=== PATIENT | female | born 1965 | race Two or more races ===

== ENCOUNTER → 2016-08-10 | Day surgery (SDC) | payer BC ==
--- NOTE | 2016-08-10 14:37 | USB ---
EXAMINATION TYPE: US biopsy breast VAD LT, MG diagnostic mammo LT wo CAD DATE OF EXAM: 08/10/2016 2:00 PM CLINICAL HISTORY: 51-year-old female referred for ultrasound-guided core needle biopsy, R92.8 Abn Mammo. TECHNIQUE: Ultrasound guided core biopsy of 1:00 left breast. COMPARISON: 05/08/2016 FINDINGS: The procedure of ultrasound guided core biopsy was explained to the patient. Benefits, alternatives, and risks were discussed. An informed consent was then obtained. The cyst cluster complex cystic mass at the 1:00 position in zone B/C in the left breast was redemonstrated and appears stable to possibly minimally smaller measuring at 1.3 x 1.2 x 1.2 cm. The patient was placed in supine positioning for imaging and for the procedure. The overlying skin was prepped and draped in usual sterile fashion. Lidocaine buffered with bicarbonate was used as anesthetic into the skin and subcutaneous tissue up to area of concern in the left breast. Under ultrasound guidance, a 13-gauge vacuum-assisted mammotome Elite biopsy gun device was used to obtain 8 core samples. The lesion promptly decompressed upon placement of the biopsy needle. Following this, a ribbon clip was left in the lesion. The patient tolerated the procedure well without any immediate complication. The patient was kept in the radiology department for short stay after the procedure and then discharged home in stable condition. Post procedure mammogram shows ribbon clip in the upper outer quadrant at a middle depth. IMPRESSION: 1. Successful, uncomplicated ultrasound guided core biopsy of the palpable 1:00 left breast lesion, complex cystic mass versus cyst cluster; pathology results to follow. RECOMMENDATION: 1. Follow-up pathology for the left breast 2. Follow-up right breast ultrasound in 3 months (as the patient presented late for the breast biopsy) (targeted to the 7:00 position). 3. Follow-up left breast ultrasound in 3 months for other small lesions seen on the 05/08/2016 exam. Pathology Results: Benign BREAST, LEFT, CORE BIOPSY: FIBROCYSTIC CHANGES INCLUDING FOCAL SCAR/FAT NECROSIS , FIBROSIS, CYSTS, ADENOSIS, AND RARE MICROCALCIFICATIONS. Recommendation 1. Follow up targed ultrasound of the right breast 7:00 in 3 months (as the patient presented late for biopsy). 2. Followup left breast ultrasound for other small lesions seen on 05/08/[address] [facility]
== END ==
LOC: RADUSWWP 12:35
PROVIDERS: ATTEND Surgery
DX: N64.1 Fat necrosis of breast (principal); L90.5 Scar conditions and fibrosis of skin; R92.8 Other abnormal and inconclusive findings on diagnostic imaging of breast; N60.32 Fibrosclerosis of left breast; N64.89 Other specified disorders of breast; N60.22 Fibroadenosis of left breast; Z88.6 Allergy status to analgesic agent; Z88.1 Allergy status to other antibiotic agents
CPT/HCPCS: 88305; 19083; G0206; A4648

== ENCOUNTER → 2016-11-28 | Outpatient (CLI) | payer BC ==
--- NOTE | 2016-11-29 08:48 | USB ---
Reason for exam: follow-up at short interval from prior study. History: Patient is postmenopausal and has history of other cancer at age 42. Family history of breast cancer in father at age 65, breast cancer in mother at age 30, and breast cancer in 2 maternal aunts at age 60. Benign US biopsy breast VAD LT of the left breast, August 10, 2016. Benign US LT VAD breast biopsy of the left breast, June 17, 2013. Left Breast Aspiration of the left breast, June 17, 2013. Excisional biopsy of the right breast, 2010. Physical Findings: Nurse Summary: nodular, x 4 palpables/clusters (nurse kp). US Breast Limited BILAT Right breast ultrasound includes all four quadrants, the retroareolar region and axilla. Finding demonstrates a 0.4 x 0.4 x 0.4cm round, cystic lesion at 8 o'clock, a 0.6 x 0.6 x 0.3cm oval, cystic lesion at 9 o'clock and a 1.2 x 0.9 x 0.8cm oval, cystic lesion at 9 o'clock. Left breast ultrasound demonstrates a 0.3 x 0.5 x 0.3cm oval, cystic lesion at 1 o'clock. These results were verbally communicated with the patient and result sheet given to the patient on 11/28/16. ASSESSMENT: Probably benign, BI-RAD 3 RECOMMENDATION: Ultrasound of the right breast in 3 months. (3-6 months)
== END | disposition home or self-care (01) ==
LOC: RADUSWWP 14:49
PROVIDERS: ATTEND Surgery
DX: N60.09 Solitary cyst of unspecified breast (principal)

== ENCOUNTER → 2017-03-13 | Outpatient (CLI) | payer BC ==
--- NOTE | 2017-03-13 10:44 | US ---
EXAMINATION TYPE: US transvaginal DATE OF EXAM: 03/13/2017 COMPARISON: CT dated 05/15/2012 CLINICAL HISTORY: R10.2 Pelvic and Perineal pain. LLQ pain TECHNIQUE: Transvaginal (TV) Date of LMP: hysterectomy EXAM MEASUREMENTS: Uterus: Surgically absent cm Endometrial Stripe: Surgically absent cm Right Ovary: 2.2 x 2.4 x 1.5 cm Left Ovary: 2.7 x 2.1 x 1.7 cm 1. Uterus: surgically absent 2. Endometrium: Surgically absent 3. Right Ovary: wnl 4. Left Ovary: 1.6 x 1.2 x 1.4 cm echogenic lesion with low level echoes. 5. Bilateral Adnexa: wnl 6. Posterior cul-de-sac: wnl Grayscale, color Doppler imaging performed of the ovaries. 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 Patient is post hysterectomy.
== END | disposition home or self-care (01) ==
LOC: RADUSWWP 09:06
PROVIDERS: ATTEND Family Medicine
DX: R10.2 Pelvic and perineal pain (principal); Z79.810 Long term (current) use of selective estrogen receptor modulators (SERMs)
CPT/HCPCS: 76830

== ENCOUNTER → 2017-03-13 | Outpatient (CLI) | payer BC ==
--- NOTE | 2017-03-13 10:04 | USB ---
Reason for exam: follow-up at short interval from prior study. History: Patient is postmenopausal and has history of other cancer at age 42. Family history of breast cancer in father at age 65, breast cancer in mother at age 30, and breast cancer in 2 maternal aunts at age 60. Benign US biopsy breast VAD LT of the left breast, August 10, 2016. Benign US LT VAD breast biopsy of the left breast, June 17, 2013. Left Breast Aspiration of the left breast, June 17, 2013. Excisional biopsy of the right breast, 2010. Physical Findings: Nurse did not find any significant physical abnormalities on exam. US Breast RT Right breast ultrasound includes all four quadrants, the retroareolar region and axilla. Finding demonstrates a 0.5 x 0.4 x 0.4cm oval, cystic lesion at 8 o'clock. These results were verbally communicated with the patient and result sheet given to the patient on 03/13/17. ASSESSMENT: Benign, BI-RAD 2 RECOMMENDATION: Routine screening mammogram of both breasts in 1 month. Back on schedule for April 2017.
== END | disposition home or self-care (01) ==
LOC: RADUSWWP 09:04
PROVIDERS: ATTEND Surgery
DX: N60.09 Solitary cyst of unspecified breast (principal)

== ENCOUNTER → 2017-11-05 | Outpatient (CLI) | payer BC ==
--- NOTE | 2017-11-05 10:03 | US ---
EXAMINATION TYPE: US thyroid st tissue head/neck DATE OF EXAM: 11/05/2017 COMPARISON: NONE CLINICAL HISTORY: R13.10 Dysphagia. Intermittent sensation of lump in throat GLAND SIZE: Right Lobe: 4.3 x 1.2 x 1.4 cm Overall Parenchyma: homogenous Left Lobe: 4.4 x 1.5 x 1.3 cm Overall Parenchyma: homogeneous Isthmus Thickness: 0.2 cm NODULES RIGHT: # of nodules measured on right: 0 LEFT: # of nodules measured on left: 1 1. 0.5 X 0.6 x 0.3 cm hypoechoic cystic nodule at the lower pole with well-defined margins. This n odule is wider than tall and shows no intranodular vascularity. Prior size: [employer] ISTHMUS: # of nodules measured in the isthmus: 0 Bilateral neck scanned, no evidence of lymphadenopathy. IMPRESSION: Subcentimeter solitary left thyroid nodule in a nonenlarged thyroid gland. This is below threshold fo r fine-needle aspiration and surveillances recommended. Esophagram could be performed in this patient with dysphagia if clinically indicated.
[2017-11-05 10:08] LABS: HCT 43.6 % (34.0-46.0); MCH 30.9 pg (25.0-35.0); MCHC 34.4 g/dL (31.0-37.0); MCV 89.9 fL (80.0-100.0); Mean Platelet Volume 7.2; Platelet Count 303 k/uL (150-450); RBC 4.85 m/uL (3.80-5.40); RDW 12.4 % (11.5-15.5); WBC 7.5 k/uL (3.8-10.6)
[2017-11-05 10:24] LABS: ALT 23 U/L (9-52); AST 22 U/L (14-36); Albumin 4.3 g/dL (3.5-5.0); Alkaline Phosphatase 69 U/L (38-126); Anion Gap 14 mmol/L; Blood Urea Nitrogen 12 mg/dL (7-17); Calcium 9.6 mg/dL (8.4-10.2); Carbon Dioxide 26 mmol/L (22-30); Chloride 104 mmol/L (98-107); Glucose 118 mg/dL (74-99); Potassium 4.1 mmol/L (3.5-5.1); Sodium 144 mmol/L (137-145); Total Bilirubin 0.7 mg/dL (0.2-1.3); Total Protein 7.3 g/dL (6.3-8.2)
[2017-11-05 10:39] LABS: T4, Free (Free Thyroxine) 1.07 ng/dL (0.78-2.19)
[2017-11-05 17:40] LABS: Vitamin D 25 Hydroxy 18.4 ng/mL (30.0-100.0)
[2017-11-05 17:41] LABS: Thyroid Peroxidase Antibodies 86.4 U/mL (0.0-60.0)
== END | disposition home or self-care (01) ==
LOC: RADUSWWP 09:25
PROVIDERS: ATTEND Internal Medicine Endocrinology, Diabetes & Metabolism
DX: E04.1 Nontoxic single thyroid nodule (principal); R53.83 Other fatigue; E55.9 Vitamin D deficiency, unspecified; Z78.0 Asymptomatic menopausal state
CPT/HCPCS: 36415; 76536; 80053; 82306; 82533; 82607; 83001; 84146; 84439; 84443; 84481; 85027; 86376

== ENCOUNTER 2017-11-15 23:53 | Emergency (ER) | payer BC ==
[2017-11-16 00:04] VITALS: TEMP 97.4
[2017-11-16] MEDS ORDERED: SODIUM CHLORIDE 0.9% 1,000 ML IV STA (00:35)
[2017-11-16] MEDS ORDERED: ONDANSETRON 4 MG/2 ML VIAL IVP STA (00:35)
[2017-11-16] MEDS ORDERED: MORPHINE SULFATE 4 MG/ML SYRINGE IV STA (00:35)
[2017-11-16 01:08] LABS: Basophils % (A) 1 %; Eosinophils # (A) 0.2 k/uL (0-0.7); Eosinophils % (A) 3 %; HCT 42.5 % (34.0-46.0); HGB 14.6 gm/dL (11.4-16.0); Lymphocytes # (A) 2.6 k/uL (1.0-4.8); Lymphocytes % (A) 33 %; MCH 30.3 pg (25.0-35.0); MCHC 34.5 g/dL (31.0-37.0); MCV 87.9 fL (80.0-100.0); Mean Platelet Volume 7.8; Monocytes # (A) 0.5 k/uL (0-1.0); Monocytes % (A) 6 %; Neutrophils # (A) 4.3 k/uL (1.3-7.7); Neutrophils % (A) 55 %; Platelet Count 261 k/uL (150-450); RBC 4.83 m/uL (3.80-5.40); WBC 7.8 k/uL (3.8-10.6)
[2017-11-16 01:21] LABS: ALT 33 U/L (9-52); AST 21 U/L (14-36); Albumin 4.3 g/dL (3.5-5.0); Alkaline Phosphatase 78 U/L (38-126); Amylase 66 U/L (30-110); Anion Gap 12 mmol/L; Blood Urea Nitrogen 14 mg/dL (7-17); Calcium 9.8 mg/dL (8.4-10.2); Carbon Dioxide 25 mmol/L (22-30); Chloride 102 mmol/L (98-107); Glucose 120 mg/dL (74-99); Lipase 127 U/L (23-300); Potassium 3.9 mmol/L (3.5-5.1); Sodium 139 mmol/L (137-145); Total Bilirubin 0.4 mg/dL (0.2-1.3)
[2017-11-16 01:23] LABS: Appearance,Urine Clear (Clear); Bilirubin,Urine Negative (Negative); Blood,Urine Large (Negative); Color,Urine Yellow; Glucose,Urine (UA) Negative (Negative); Hyaline Casts,Urine 2 /lpf (0-2); Ketones,Urine Negative (Negative); Leukocyte Esterase,Urine Negative (Negative); Mucus,Urine Occasional /hpf; Nitrite,Urine Negative (Negative); PH, Urine 6.5 (5.0-8.0); Protein,Urine Trace (Negative); RBC,Urine >182 /hpf (0-5); Specific Gravity,Urine 1.015 (1.001-1.035); Squamous Epithelial Cell,Urine 1 /hpf (0-4); Urobilinogen,Urine <2.0 mg/dL (<2.0); WBC,Urine <1 /hpf (0-5)
--- NOTE | 2017-11-16 01:31 | ED ---
Abdominal Pain HPI - General Chief Complaint: Abdominal Pain Stated Complaint: poss kidney stone Time Seen by Provider: 11/16/17 00:27 Source: patient Mode of arrival: ambulatory Limitations: no limitations - History of Present Illness Initial Comments: 52-year-old female patient presents to the emergency department today for evaluation of left flank and left lower quadrant abdominal pain. Patient states that she has had a dull achy pain to the left lower quadrant over the last 3-4 months. Patient states that she has had a ovarian cyst on the left side in the past 7 leave this to the cause of her pain. Patient states that tonight the pain started radiating into her back and has become quite severe. Patient states the pain is a sharp stabbing pain. States she is nauseated with this. She denies any vomiting, constipation, or diarrhea. She denies any fevers or chills. She denies any hematuria, dysuria, urinary frequency, urinary urgency. States that she has had kidney stone in the past. This does feel similar. Patient denies any recent rash, shortness breath, chest pain, numbness, tingling, dizziness, weakness, headache, visual changes, or any other complaints. - Related Data Previous Rx's Medication Instructions Recorded Hydrocodone/Acetaminophen [[place] 1 tab PO Q6HR PRN #12 tab 11/16/17 5-325] Ibuprofen [Motrin] 600 mg PO Q8HR PRN #30 tab 11/16/17 Ondansetron [Zofran ODT] 4 mg PO Q8HR PRN #10 tab 11/16/17 Tamsulosin HCl [Flomax] 0.4 mg PO DAILY #7 cap 11/16/17 Allergies Allergy/AdvReac Type Severity Reaction Status Date / Time Tetracyclines Allergy Rash/Hives Verified 11/16/17 00:05 aspirin AdvReac Abdominal Verified 11/16/17 00:05 Pain Review of Systems ROS Statement: Those systems with pertinent positive or pertinent negative responses have been documented in the HPI. ROS Other: All systems not noted in ROS Statement are negative. Past Medical History Past Medical History: No Reported History History of Any Multi-Drug Resistant Organisms: None Reported Past Surgical History: Hysterectomy Past Psychological History: No Psychological Hx Reported Smoking Status: Former smoker Past Alcohol Use History: None Reported Past Drug Use History: None Reported General Exam Limitations: no limitations General appearance: alert, in no apparent distress, other (This is a well- developed, well-nourished adult female patient in no acute distress. Vital signs upon presentation are temperature 97.4F, pulse 82, respirations 20, blood pressure 182/88, pulse ox 100% on room air.) Eye exam: Present: normal appearance, PERRL, EOMI. Absent: scleral icterus, conjunctival injection, periorbital swelling ENT exam: Present: normal exam, normal oropharynx, mucous membranes moist Respiratory exam: Present: normal lung sounds bilaterally. Absent: respiratory distress, wheezes, rales, rhonchi, stridor Cardiovascular Exam: Present: regular rate, normal rhythm, normal heart sounds. Absent: systolic murmur, diastolic murmur, rubs, gallop, clicks GI/Abdominal exam: Present: soft, normal bowel sounds. Absent: distended, tenderness, guarding, rebound, rigid Back exam: Present: normal inspection. Absent: CVA tenderness (R), CVA tenderness (L) Neurological exam: Present: alert, oriented X3, CN II-XII intact Psychiatric exam: Present: normal affect, normal mood Skin exam: Present: warm, dry, intact, normal color. Absent: rash Course Vital Signs 11/15/17 23:59 Temperature 97.4 F L Pulse Rate 82 Respiratory 20 Rate Blood Pressure 182/88 O2 Sat by Pulse 100 Oximetry Medical Decision Making - Medical Decision Making 52-year-old female patient presented to the emergency department today for evaluation of left flank and left lower quadrant abdominal pain. Physical examination was relatively unremarkable. Labs reviewed and did show urinalysis with a large amount of blood. CT of the abdomen and pelvis without contrast was obtained to evaluate for kidney stone. There was a 7.4 mm stone noted at the left UVJ. Did discuss findings with the patient. She'll be given Flomax, Zofran, ibuprofen, and [place] for pain and symptom control. She is instructed to follow-up with urology. Return parameters discussed in detail. She verbalizes understanding and agrees with this plan. - Lab Data Result diagrams: 11/16/17 00:50 11/16/17 00:50 Lab Results 11/16/17 11/16/17 11/16/17 Range/Units 00:50 00:50 01:09 WBC 7.8 (3.8-10.6) k/uL RBC 4.83 (3.80-5.40) m/uL Hgb 14.6 (11.4-16.0) gm/dL Hct 42.5 (34.0-46.0) % MCV 87.9 (80.0-100.0) fL MCH 30.3 (25.0-35.0) pg MCHC 34.5 (31.0-37.0) g/dL RDW 12.0 (11.5-15.5) % Plt Count 261 (150-450) k/uL Neutrophils % 55 % Lymphocytes % 33 % Monocytes % 6 % Eosinophils % 3 % Basophils % 1 % Neutrophils # 4.3 (1.3-7.7) k/uL Lymphocytes # 2.6 (1.0-4.8) k/uL Monocytes # 0.5 (0-1.0) k/uL Eosinophils # 0.2 (0-0.7) k/uL Basophils # 0.0 (0-0.2) k/uL Sodium 139 (137-145) mmol/L Potassium 3.9 (3.5-5.1) mmol/L Chloride 102 (98-107) mmol/L Carbon Dioxide 25 (22-30) mmol/L Anion Gap 12 mmol/L BUN 14 (7-17) mg/dL Creatinine 0.60 (0.52-1.04) mg/dL Est GFR (CKD-EPI)AfAm >90 (>60 ml/min/1.73 sqM) Est GFR (CKD-EPI)NonAf >90 (>60 ml/min/1.73 sqM) Glucose 120 H (74-99) mg/dL Calcium 9.8 (8.4-10.2) mg/dL Total Bilirubin 0.4 (0.2-1.3) mg/dL AST 21 (14-36) U/L ALT 33 (9-52) U/L Alkaline Phosphatase 78 (38-126) U/L Total Protein 7.0 (6.3-8.2) g/dL Albumin 4.3 (3.5-5.0) g/dL Amylase 66 (30-110) U/L Lipase 127 (23-300) U/L Urine Color Yellow Urine Appearance Clear (Clear) Urine pH 6.5 (5.0-8.0) Ur Specific [place] 1.015 (1.001-1.035) Urine Protein Trace H (Negative) Urine Glucose (UA) Negative (Negative) Urine Ketones Negative (Negative) Urine Blood Large H (Negative) Urine Nitrite Negative (Negative) Urine Bilirubin Negative (Negative) Urine Urobilinogen <2.0 (<2.0) mg/dL Ur Leukocyte Esterase Negative (Negative) Urine RBC >182 H (0-5) /hpf Urine WBC <1 (0-5) /hpf Ur Squamous Epith Cells 1 (0-4) /hpf Hyaline Casts 2 (0-2) /lpf Urine Mucus Occasional H (None) /hpf - Radiology Data Radiology results: report reviewed, image reviewed Two-view x-ray of the abdomen shows no free air, vague densities in the pelvis may represent phleboliths. Possibility of ureteral stones or not totally excluded. GI tract is unremarkable no dilation. Bones and joints are unremarkable. Impression by Dr. Oliveira shows no acute abnormality. Vague densities in the pelvis may represent phleboliths. CT of the abdomen and pelvis without contrast was obtained. Report was reviewed in its entirety. Impression by Dr. Oliveira shows left-sided hydronephrosis and hydroureter with a 7.4 mm stone which appears to be in the os of the left ureter at the UVJ. Partially calcified cyst midpole left kidney. The calcifications appear to be new compared to the prior study. Disposition Clinical Impression: Kidney stone on left side Disposition: HOME SELF-CARE Condition: Good Instructions: Kidney Stones (ED), How to Strain Your Urine (ED) Additional Instructions: Take medications as directed. Increase fluid intake. Follow-up with urology as soon as possible. Return here immediately for any new, worsening, or concerning symptoms. Prescriptions: Hydrocodone/Acetaminophen [[place] 5-325] 1 tab PO Q6HR PRN #12 tab PRN Reason: Pain Ibuprofen [Motrin] 600 mg PO Q8HR PRN #30 tab PRN Reason: Pain Ondansetron [Zofran ODT] 4 mg PO Q8HR PRN #10 tab PRN Reason: Nausea Tamsulosin HCl [Flomax] 0.4 mg PO DAILY #7 cap Is patient prescribed a controlled substance at d/c from ED?: Yes When asked, does pt state using other controlled substances?: No Referrals: Gustavo Tsai MD [Primary Care Provider] - 1-2 days Elio Renee MD [STAFF PHYSICIAN] - 1-2 days Time of Disposition: 02:48
--- NOTE | 2017-11-16 01:51 | XR ---
EXAM: XR Abdomen, 2 Views CLINICAL HISTORY: abdominal pain TECHNIQUE: Frontal view of the abdomen/pelvis with upright view of the abdomen. COMPARISON: No relevant prior studies available. FINDINGS: Intraperitoneal space: No free air. Vague densities noted in the pelvis may represent phleboliths. Possibility of ureteral stones are not totally excluded. Gastrointestinal tract: Unremarkable. No dilation. Bones/joints: Unremarkable. IMPRESSION: No acute abnormality. Vague densities in the pelvis may represent phleboliths
[2017-11-16] MEDS ORDERED: KETOROLAC 30 MG/ML 1 ML VIAL IVP STA (02:30)
--- NOTE | 2017-11-16 02:31 | CT ---
EXAM: CT Abdomen and Pelvis Without Intravenous Contrast CLINICAL HISTORY: Pain TECHNIQUE: Axial computed tomography images of the abdomen and pelvis without intravenous contrast. CTDI is 8.6 mGy and DLP is 403.2 mGy-cm. This CT exam was performed using one or more of the following dose reduction techniques: automated exposure control, adjustment of the mA and/or kV according to patient size, and/or use of iterative reconstruction technique. COMPARISON: May 15, 2012 FINDINGS: Lung bases: Unremarkable. No mass. No consolidation. ABDOMEN: Liver: Unremarkable. Gallbladder and bile ducts: Unremarkable. No calcified stones. No ductal dilation. Pancreas: Unremarkable. No ductal dilation. Spleen: Unremarkable. No splenomegaly. Adrenals: Unremarkable. No mass. Kidneys and ureters: Left-sided hydronephrosis and hydroureter with a 7. 4 cm stone in the os of the ureter at the ureterovesicular junction. There is a partially calcified cystic lesion midpole left kidney. Calcification the cyst appears be new compared to the prior study Multiple bilateral renal cysts are present unchanged from prior study. Stomach and bowel: Unremarkable. No obstruction. No mucosal thickening. The appendix is unremarkable IMPRESSION: Left-sided hydronephrosis and hydroureter with a 7.4 cm stone which appears to be in the os of the left ureter at the UVJ Partially calcified cyst midpole left kidney. The calcifications appear to be new compared to the prior study
[2017-11-16] MEDS ORDERED: TAMSULOSIN 0.4 MG CAP.ER.24H PO STA (02:48)
[2017-11-16 03:34] VITALS: BP 125/74; PULSE 71; RESP 18
== END 2017-11-16 03:37 | disposition home or self-care (01) ==
LOC: EC 23:53
DX: N13.2 Hydronephrosis with renal and ureteral calculous obstruction (principal); N28.1 Cyst of kidney, acquired; N83.202 Unspecified ovarian cyst, left side; Z87.891 Personal history of nicotine dependence; Z88.1 Allergy status to other antibiotic agents; Z88.6 Allergy status to analgesic agent; Z90.710 Acquired absence of both cervix and uterus
CPT/HCPCS: 36415; 80053; 82150; 83690; 85025; 81001; 74018; 74176; 99284; 96374; 96375 ×2; 96361 ×2; J2270; J2405; J1885

== ENCOUNTER 2021-06-18 10:56 | Inpatient (IN) | payer BC ==
[2021-06-18] MEDS ORDERED: ACETAMINOPHEN TAB 500 MG TAB PO PRN (11:54)
[2021-06-18] MEDS ORDERED: DEXAMETHASONE SOD PHOSPHATE 10 MG/ML 1 ML VIAL IVP STA (11:56)
--- NOTE | 2021-06-18 12:05 | ED ---
General Adult HPI - General Chief complaint: Shortness of Breath Stated complaint: Covid+, BAM yesterday, feeling worse Time Seen by Provider: 06/18/21 11:38 Source: patient, family, RN notes reviewed Mode of arrival: wheelchair Limitations: no limitations - History of Present Illness Initial comments: 55-year-old female without any significant past medical history presents to the emergency room for a chief complaint of shortness of breath. Patient tested positive for COVID-19 on 06/10/2021. She did receive the antibodies at [facility]. Patient states that she is still continuing to have shortness of breath and headaches as well as body aches. States her symptoms are not getting better. Pt is not vaccinated for COVID19. Patient has no other complaints at this time including chest pain, abdominal pain, nausea or vomiting, headache, or visual changes. - Related Data Home Medications Medication Instructions Recorded Confirmed Cholecalciferol [Vitamin D3 (125 125 mcg PO HS 06/18/21 06/18/21 Mcg = 5000 Iu)] Zinc Gluconate [Zinc] 50 mg PO HS 06/18/21 06/18/21 Allergies Allergy/AdvReac Type Severity Reaction Status Date / Time Tetracyclines Allergy Rash/Hives Verified 06/18/21 12:27 aspirin AdvReac Abdominal Verified 06/18/21 12:27 Pain Review of Systems ROS Statement: Those systems with pertinent positive or pertinent negative responses have been documented in the HPI. ROS Other: All systems not noted in ROS Statement are negative. Past Medical History Past Medical History: No Reported History History of Any Multi-Drug Resistant Organisms: None Reported Past Surgical History: Hysterectomy Past Psychological History: No Psychological Hx Reported Smoking Status: Never smoker Past Alcohol Use History: None Reported Past Drug Use History: None Reported General Exam Limitations: no limitations General appearance: alert, in no apparent distress Head exam: Present: atraumatic Eye exam: Present: normal appearance, PERRL, EOMI. Absent: scleral icterus, conjunctival injection ENT exam: Present: normal exam, mucous membranes moist Neck exam: Present: normal inspection, full ROM. Absent: tenderness Respiratory exam: Present: normal lung sounds bilaterally. Absent: respiratory distress, wheezes Cardiovascular Exam: Present: regular rate, normal rhythm, normal heart sounds GI/Abdominal exam: Present: soft, normal bowel sounds. Absent: distended, tenderness Neurological exam: Present: alert Course Vital Signs 06/18/21 06/18/21 11:11 12:14 Temperature 99.0 F Pulse Rate 75 77 Respiratory 18 18 Rate Blood Pressure 105/70 121/82 O2 Sat by Pulse 82 L 92 L Oximetry EKG Findings - EKG Comments: EKG Findings:: normal sinus rhythm, ventricular rate 77, OK interval 160, QTC 416 Medical Decision Making - Medical Decision Making She presents 82% on room air. She is around 90-92% on 6 L nasal cannula at this time. Patient has had COVID-19 since 06/10/2021. Patient did receive antibodies outpatient. Unfortunately she is unvaccinated. EKG nonischemic. CMP shows minimal hyponatremia as well as some transaminitis. Covid markers were obtained. Chest x-ray shows a pneumonia which is likely related to COVID-19. D-dimer is normal. Patient was given Decadron. At this time patient is requiring admission. Will consult pulmonology and infectious disease. Discussed with Dr. Pabon who accepts admission - Lab Data Result diagrams: 06/18/21 12:07 06/18/21 12:07 Lab Results 06/18/21 06/18/21 06/18/21 Range/Units 12:07 12:07 12:07 WBC 8.6 (3.8-10.6) k/uL RBC 4.99 (3.80-5.40) m/uL Hgb 15.4 (11.4-16.0) gm/dL Hct 44.9 (34.0-46.0) % MCV 90.0 (80.0-100.0) fL MCH 30.9 (25.0-35.0) pg MCHC 34.4 (31.0-37.0) g/dL RDW 12.5 (11.5-15.5) % Plt Count 268 (150-450) k/uL MPV 7.3 Neutrophils % 81 % Lymphocytes % 13 % Monocytes % 4 % Eosinophils % 0 % Basophils % 0 % Neutrophils # 7.0 (1.3-7.7) k/uL Lymphocytes # 1.1 (1.0-4.8) k/uL Monocytes # 0.3 (0-1.0) k/uL Eosinophils # 0.0 (0-0.7) k/uL Basophils # 0.0 (0-0.2) k/uL PT 10.1 (9.0-12.0) sec INR 0.9 (<1.2) APTT 24.2 (22.0-30.0) sec D-Dimer 0.39 (<0.60) mg/L FEU Sodium 131 L (137-145) mmol/L Potassium 4.5 (3.5-5.1) mmol/L Chloride 96 L (98-107) mmol/L Carbon Dioxide 25 (22-30) mmol/L Anion Gap 10 mmol/L BUN 17 (7-17) mg/dL Creatinine 0.67 (0.52-1.04) mg/dL Est GFR (CKD-EPI)AfAm >90 (>60 ml/min/1.73 sqM) Est GFR (CKD-EPI)NonAf >90 (>60 ml/min/1.73 sqM) Glucose 93 (74-99) mg/dL Plasma Lactic Acid Jose J (0.7-2.0) mmol/L Calcium 8.6 (8.4-10.2) mg/dL Magnesium 2.2 (1.6-2.3) mg/dL Total Bilirubin 0.6 (0.2-1.3) mg/dL AST 60 H (14-36) U/L ALT 41 H (4-34) U/L Alkaline Phosphatase 83 (38-126) U/L Lactate Dehydrogenase 835 H (313-618) U/L C-Reactive Protein 17.7 H (<1.0) mg/dL Total Protein 7.0 (6.3-8.2) g/dL Albumin 3.4 L (3.5-5.0) g/dL 06/18/21 Range/Units 12:07 WBC (3.8-10.6) k/uL RBC (3.80-5.40) m/uL Hgb (11.4-16.0) gm/dL Hct (34.0-46.0) % MCV (80.0-100.0) fL MCH (25.0-35.0) pg MCHC (31.0-37.0) g/dL RDW (11.5-15.5) % Plt Count (150-450) k/uL MPV Neutrophils % % Lymphocytes % % Monocytes % % Eosinophils % % Basophils % % Neutrophils # (1.3-7.7) k/uL Lymphocytes # (1.0-4.8) k/uL Monocytes # (0-1.0) k/uL Eosinophils # (0-0.7) k/uL Basophils # (0-0.2) k/uL PT (9.0-12.0) sec INR (<1.2) APTT (22.0-30.0) sec D-Dimer (<0.60) mg/L FEU Sodium (137-145) mmol/L Potassium (3.5-5.1) mmol/L Chloride (98-107) mmol/L Carbon Dioxide (22-30) mmol/L Anion Gap mmol/L BUN (7-17) mg/dL Creatinine (0.52-1.04) mg/dL Est GFR (CKD-EPI)AfAm (>60 ml/min/1.73 sqM) Est GFR (CKD-EPI)NonAf (>60 ml/min/1.73 sqM) Glucose (74-99) mg/dL Plasma Lactic Acid Jose J 1.0 (0.7-2.0) mmol/L Calcium (8.4-10.2) mg/dL Magnesium (1.6-2.3) mg/dL Total Bilirubin (0.2-1.3) mg/dL AST (14-36) U/L ALT (4-34) U/L Alkaline Phosphatase (38-126) U/L Lactate Dehydrogenase (313-618) U/L C-Reactive Protein (<1.0) mg/dL Total Protein (6.3-8.2) g/dL Albumin (3.5-5.0) g/dL Disposition Clinical Impression: COVID-19, Acute respiratory failure with hypoxia, Pneumonia, Hyponatremia, Transaminitis Disposition: ADMITTED IP TO THIS HOSP Is patient prescribed a controlled substance at d/c from ED?: No Referrals: Gustavo Tsai MD [Primary Care Provider] - 1-2 days Time of Disposition: 13:31
[2021-06-18 12:35] LABS: Basophils % (A) 0 %; Eosinophils % (A) 0 %; HCT 44.9 % (34.0-46.0); HGB 15.4 gm/dL (11.4-16.0); Lymphocytes # (A) 1.1 k/uL (1.0-4.8); Lymphocytes % (A) 13 %; MCH 30.9 pg (25.0-35.0); MCHC 34.4 g/dL (31.0-37.0); Mean Platelet Volume 7.3; Monocytes # (A) 0.3 k/uL (0-1.0); Monocytes % (A) 4 %; Neutrophils % (A) 81 %; Platelet Count 268 k/uL (150-450); RBC 4.99 m/uL (3.80-5.40); RDW 12.5 % (11.5-15.5); WBC 8.6 k/uL (3.8-10.6)
[2021-06-18 12:47] LABS: ALT 41 U/L (4-34); AST 60 U/L (14-36); African American GFR (CKD) >90 (>60 ml/min/1.73 sqM); Albumin 3.4 g/dL (3.5-5.0); Alkaline Phosphatase 83 U/L (38-126); Anion Gap 10 mmol/L; Blood Urea Nitrogen 17 mg/dL (7-17); Calcium 8.6 mg/dL (8.4-10.2); Carbon Dioxide 25 mmol/L (22-30); Chloride 96 mmol/L (98-107); Glucose 93 mg/dL (74-99); LDH 835 U/L (313-618); Magnesium 2.2 mg/dL (1.6-2.3); Non-African American GFR(CKD) >90 (>60 ml/min/1.73 sqM); Potassium 4.5 mmol/L (3.5-5.1); Sodium 131 mmol/L (137-145); Total Bilirubin 0.6 mg/dL (0.2-1.3)
[2021-06-18 13:04] LABS: C Reactive Protein 17.7 mg/dL (<1.0)
[2021-06-18 13:09] LABS: INR 0.9 (<1.2); Partial Thromboplastin Time 24.2 sec (22.0-30.0); Prothrombin Time 10.1 sec (9.0-12.0)
--- NOTE | 2021-06-18 13:15 | XR ---
EXAMINATION TYPE: XR chest 1V portable DATE OF EXAM: 06/18/2021 COMPARISON: Chest x-ray 02/16/2010 HISTORY: Suspected Covid 19 pneumonia TECHNIQUE: Single frontal view of the chest is obtained. FINDINGS: Bilateral airspace disease is present. There is no evident pneumothorax or pleural effusio n. Right hemidiaphragm is mildly elevated. Cardiac mediastinal silhouette is within normal limits acc ounting for technique. Patient is rotated, there are overlying leads. IMPRESSION: Correlate for pneumonia.
[2021-06-18] MEDS ORDERED: NALOXONE 0.4 MG/ML 1 ML VIAL IV PRN (13:32)
[2021-06-18] MEDS ORDERED: ONDANSETRON 4 MG/2 ML VIAL IVP PRN (13:32)
[2021-06-18] MEDS ORDERED: SODIUM CHLORIDE 0.9% 1,000 ML IV SCH (13:45)
--- NOTE | 2021-06-18 16:03 | P.HPIM ---
History of Present Illness Chief Complaint: Shortness of breath This is a very pleasant 55-year-old female without significant past medical history no home medications can to emergency department for a volitional shortness of breath. Patient developed chills, nonproductive cough, body aches, loss of smell about 1 week or to presentation the hospital. On 06/10/21 she tested positive positive for COVID-19. Patient received infusional monoclonal antibody an outpatient basis. However her respiratory symptoms continued to worsen and she was developing loss of shortness of breath cough malaise generalized weakness headaches and body aches. In view of that she came to emergency department she was found to be saturating in the 80s. She required 6 L of nasal cannula for her oxygen saturation to be brought up to low 90s. Chest x-ray showed bilateral pneumonia. Patient denied any chest pain nausea vomiting abdominal pain or diarrhea. Patient denies any past medical problems are home medications. She is doing more comfortable now with supplemental oxygen. Review of Systems All systems: negative Past Medical History Past Medical History: No Reported History History of Any Multi-Drug Resistant Organisms: None Reported Past Surgical History: Hysterectomy Past Psychological History: No Psychological Hx Reported Smoking Status: Never smoker Past Alcohol Use History: None Reported Past Drug Use History: None Reported Medications and Allergies Home Medications Medication Instructions Recorded Confirmed Type Cholecalciferol [Vitamin D3 (125 125 mcg PO HS 06/18/21 06/18/21 History Mcg = 5000 Iu)] Zinc Gluconate [Zinc] 50 mg PO HS 06/18/21 06/18/21 History Allergies Allergy/AdvReac Type Severity Reaction Status Date / Time Tetracyclines Allergy Rash/Hives Verified 06/18/21 12:27 aspirin AdvReac Abdominal Verified 06/18/21 12:27 Pain Physical Exam Vitals: Vital Signs Temp Pulse Resp BP Pulse Ox 06/18/21 14:49 76 18 113/75 92 L 06/18/21 14:47 20 06/18/21 12:14 77 18 121/82 92 L 06/18/21 11:11 99.0 F 75 18 105/70 82 L Intake and Output 06/18/21 06/18/21 06/18/21 06:59 14:59 22:59 Other: Weight 72.575 kg Awake alert oriented 3 and in the apparent distress Head and neck: No facial asymmetry anicteric sclerae moist mucous membranes no neck masses no JVD Lungs: Normal breath sounds no wheezing no rhonchi no crackles Cardiovascular: Regular rhythm and rate S1-S2 Abdomen: Soft nontender nondistended no flank tenderness sounds present Extremities no peripheral edema tenderness over perfused no cyanosis Musculoskeletal no joint swelling or clubbing neurological no asterixis or motor deficits the skin without any rashes Results CBC & Chem 7: 06/18/21 12:07 06/18/21 12:07 Labs: Abnormal Lab Results - Last 24 Hours (Table) 06/18/21 06/18/21 Range/Units 12:07 14:50 Sodium 131 L (137-145) mmol/L Chloride 96 L (98-107) mmol/L AST 60 H (14-36) U/L ALT 41 H (4-34) U/L Lactate Dehydrogenase 835 H (313-618) U/L C-Reactive Protein 17.7 H (<1.0) mg/dL Albumin 3.4 L (3.5-5.0) g/dL Coronavirus (PCR) Detected A (Not Detectd) Assessment and Plan Plan: #COVID-19 pneumonitis Date of diagnosis: 06/10/21 Received monoclonal antibodies: 06/17/21 Unvaccinated Chest x-ray: Bilateral patchy infiltrates Started on dexamethasone, bronchodilators, incentive spirometer Check pro calcitonin, CRP and d-dimer Pulmonary consultation #Acute hypoxic respiratory failure Due to above Currently on 6 L/m nasal cannula Encourage out of bed, incentive spirometer, bronchodilators, self pronating Patient is a full code Patient will require full admission for more than 2 midnights DVT prophylaxis with subcu Lovenox Home medications reviewed
[2021-06-18] MEDS: ASCORBIC ACID 500 MG TAB PO SCH (20:04)
[2021-06-18] MEDS: CHOLECALCIFEROL 125 MCG (5000 IU) TABLET PO SCH (20:05)
[2021-06-18] MEDS: ZINC SULFATE 220 MG CAP PO SCH (20:05)
[2021-06-18] MEDS ORDERED: MELATONIN 5 MG TABLET PO STA (21:38)
[2021-06-19] MEDS: ENOXAPARIN 40 MG/0.4 ML SYRINGE SQ SCH (07:46)
[2021-06-19] MEDS: ASCORBIC ACID 500 MG TAB PO SCH ×2 (07:46→21:48)
[2021-06-19] MEDS: DEXAMETHASONE SOD PHOSPHATE 10 MG/ML 1 ML VIAL IVP SCH (07:47)
[2021-06-19] MEDS: ALBUTEROL HFA INHALER INHALATION PRN ×4 (07:51→19:43)
--- NOTE | 2021-06-19 09:32 | P.PN ---
Subjective Principal diagnosis: COVID-19, hypoxia 55-year-old female without significant past medical history, no home medications admitted with COVID-19 pneumonitis and hypoxia Patient respiratory status is about the same, she remains on 5 L nasal cannula, bilateral pneumonia, she is feeling that her breathing is somewhat better but remains generalized weak weak and poor appetite. No abdominal pain no chest pain no diarrhea Objective - Vital Signs Vital signs: Vital Signs Temp 98.4 F 06/19/21 05:59 Pulse 64 06/19/21 05:59 Resp 16 06/19/21 05:59 BP 107/67 06/19/21 05:59 Pulse Ox 90 L 06/19/21 05:59 Intake & Output 06/18/21 06/19/21 06/19/21 18:59 06:59 18:59 Weight 72.575 kg Other: Voiding Method Toilet # Voids 2 2 - Exam Awake alert oriented 3 and in the apparent distress Head and neck: No facial asymmetry anicteric sclerae moist mucous membranes no neck masses no JVD Lungs: Normal breath sounds no wheezing no rhonchi no crackles Cardiovascular: Regular rhythm and rate S1-S2 Abdomen: Soft nontender nondistended no flank tenderness sounds present Extremities no peripheral edema tenderness over perfused no cyanosis Musculoskeletal no joint swelling or clubbing neurological no asterixis or motor deficits the skin without any rashes - Labs CBC & Chem 7: 06/18/21 12:07 06/18/21 12:07 Labs: Abnormal Lab Results - Last 24 Hours (Table) 06/18/21 06/18/21 06/18/21 Range/Units 12:07 12:07 14:50 Sodium 131 L (137-145) mmol/L Chloride 96 L (98-107) mmol/L Ferritin 956.0 H (10.0-291.0) ng/mL AST 60 H (14-36) U/L ALT 41 H (4-34) U/L Lactate Dehydrogenase 835 H (313-618) U/L C-Reactive Protein 17.7 H (<1.0) mg/dL Albumin 3.4 L (3.5-5.0) g/dL Procalcitonin 0.11 H (0.02-0.09) ng/mL Coronavirus (PCR) Detected A (Not Detectd) Assessment and Plan Plan: #COVID-19 pneumonitis Date of diagnosis: 06/10/21 Received monoclonal antibodies: 06/17/21 Unvaccinated Chest x-ray: Bilateral patchy infiltrates D-dimer: Within normal levels Started on dexamethasone, bronchodilators, incentive spirometer Check pro calcitonin, CRP Pulmonary consultation #Acute hypoxic respiratory failure Due to above Currently on 5-6 L/m nasal cannula Encourage out of bed, incentive spirometer, bronchodilators, self pronating DVT prophylaxis with subcu Lovenox Home medications reviewed
--- NOTE | 2021-06-19 10:27 | P.CONS ---
History of Present Illness - Reason for Consult Consult date: 06/18/21 covid 19 pneumonia Requesting physician: Barrett Thomas - Chief Complaint shortness of breath and headache x few days - History of Present Illness presenting to the ER for evaluation of increasing shortness of breath and this patient symptom has been going on since June 07 and apparently 10 days positive for Covid on 06/10/2021 patient has received monoclonal antibodies at however the patient now presented to hospital with increasing shortness of breath and headache as along with the body aches and the symptoms were not getting any better patient not vaccinated for COVID-19 on presentation to the hospital the patient did have low-grade fever of 99 F patient was hypoxic with O2 sats of 82% on room air currently 90% on 6 L nasal cannula pa tient did have a normal white count with no lymphopenia D-dimer is normal creatinine is normal liver sounds are mildly elevated as well as CRP and procalcitonin brambila PCR was positive chest x-ray bilateral airspace disease present patient was admitted to hospital infectious disease was consulted for further management Review of system: CONSTITUTIONAL: Positive for weakness along with low-grade fever. EYES: No complaint. ENT: No complaint. RESPIRATORY: As per history of present illness. CARDIOVASCULAR: No complaint. GENITOURINARY: No complaint. GASTROINTESTINAL: Nausea and decreased oral intake. MUSCULOSKELETAL: No complaint. INTEGUMENTARY: No complaint. PSYCHOLOGIC: No complaint. ENDOCRINE: No complaint. NEUROLOGIC: As per history of present illness. Past medical history : Reviewed, documented below Past surgical history : Reviewed, documented below Social history: Reviewed, documented below Medications: Reviewed, as documented below EXAMINATION: Vital sigans= Reviewed and documented below GENERAL DESCRIPTION: Middle-aged female lying in bed, no distress. No tachypnea or accessory muscle of respiration use. HEENT: Shows Pallor , no scleral icterus. Oral mucous membrane is dry. NECK: Trachea central, no thyromegaly. LUNGS: Unlabored breathing. Coarse breath sounds bilaterally. No wheeze or crackle. HEART: S1, S2, regular rate and rhythm. ABDOMEN: Soft, no tenderness , guarding or rigidity EXTREMITIES: No edema of feet. SKIN: No rash, no masses palpable. NEUROLOGICAL: The patient is awake, alert, oriented x3, mood and affect normal. LABS AND RADIOLOGY: Reviewed results see below Assessment : Patient presented to hospital with the weakness and body aches h eadache shortness of breath and this patient symptoms started around 06/07/2021 and tested positive for Covid on 06/10/2021 has received a monoclonal antibodies patient is currently out of the therapeutic window for remdesivir and clinical no suspicion for secondary bacterial pneumonia Plan: 1-patient to continue with the dexamethasone Lovenox zinc and ascorbic acid 2-no need for systemic antibiotic therapy 3-droplet isolation and respiratory support We will follow on clinical condition and cultures to further adjust medication if needed Thank you for this consultation we will follow the patient along with you Past Medical History Past Medical History: No Reported History History of Any Multi-Drug Resistant Organisms: None Reported Past Surgical History: Hysterectomy Past Psychological History: No Psychological Hx Reported Smoking Status: Never smoker Past Alcohol Use History: None Reported Past Drug Use History: None Reported - Past Family History Mother Family Medical History: Diabetes Mellitus, Hypertension Medications and Allergies Home Medications Medication Instructions Recorded Confirmed Type Cholecalciferol [Vitamin D3 (125 125 mcg PO HS 06/18/21 06/18/21 History Mcg = 5000 Iu)] Zinc Gluconate [Zinc] 50 mg PO HS 06/18/21 06/18/21 History Allergies Allergy/AdvReac Type Severity Reaction Status Date / Time Tetracyclines Allergy Rash/Hives Verified 06/18/21 12:27 aspirin AdvReac Abdominal Verified 06/18/21 12:27 Pain Physical Exam Vitals: Vital Signs Temp Pulse Resp BP Pulse Ox 06/18/21 16:25 99.0 F 67 18 119/79 93 L 06/18/21 15:54 67 18 119/79 93 L 06/18/21 14:49 76 18 113/75 92 L 06/18/21 14:47 20 06/18/21 12:14 77 18 121/82 92 L 06/18/21 11:11 99.0 F 75 18 105/70 82 L Intake and Output 06/18/21 06/18/21 06/18/21 06:59 14:59 22:59 Other: Weight 72.575 kg Results CBC & Chem 7: 06/18/21 12:07 06/18/21 12:07 Labs: Abnormal Lab Results - Last 24 Hours (Table) 06/18/21 06/18/21 Range/Units 12:07 14:50 Sodium 131 L (137-145) mmol/L Chloride 96 L (98-107) mmol/L AST 60 H (14-36) U/L ALT 41 H (4-34) U/L Lactate Dehydrogenase 835 H (313-618) U/L C-Reactive Protein 17.7 H (<1.0) mg/dL Albumin 3.4 L (3.5-5.0) g/dL Coronavirus (PCR) Detected A (Not Detectd)
[2021-06-19 10:28] LABS: HCT 44.1 % (37.2-46.3); HGB 14.9 g/dL (12.0-15.0); MCH 29.6 pg (27.0-32.0); MCHC 33.8 g/dL (32.0-37.0); MCV 87.7 fL (80.0-97.0); Mean Platelet Volume 9.9 fL (9.5-12.2); Platelet Count 317 X 10*3/uL (140-440); RBC 5.03 X 10*6/uL (4.10-5.20); RDW 11.9 % (11.5-14.5); WBC 5.86 X 10*3/uL (4.50-10.00)
[2021-06-19 11:07] LABS: African American GFR (CKD) 118.2 (60.0-200.0); Albumin 3.5 g/dL (3.8-4.9); Albumin/Globulin Ratio 1.09 (1.60-3.17); Anion Gap 10.8 mmol/L (10.00-18.00); BUN/Creat Ratio 30.09 Ratio (12.00-20.00); Blood Urea Nitrogen 19.2 mg/dL (9.0-27.0); C Reactive Protein 9.4 mg/dL (0.00-0.80); Calcium 9.2 mg/dL (8.7-10.3); Carbon Dioxide 23.7 mmol/L (20.0-27.5); Globulin 3.2 g/dL (1.6-3.3); Potassium 4.9 mmol/L (3.5-5.5); Total Bilirubin 0.4 mg/dL (0.30-1.20); Total Protein 6.7 g/dL (6.2-8.2)
[2021-06-19] MEDS ORDERED: MAG HYDROX/AL HYDROX/SIMETH 30 ML CUP PO PRN (11:12)
[2021-06-19] MEDS ORDERED: polyethylene glycoL 3350 17 GM POWD.PACK PO PRN (11:13)
[2021-06-19] MEDS: PANTOPRAZOLE 40 MG TABLET PO SCH (11:47)
[2021-06-19] MEDS: DOCUSATE 100 MG CAP PO SCH ×2 (11:48→21:49)
--- NOTE | 2021-06-19 14:27 | P.CNPUL ---
History of Present Illness Consult date: 06/19/21 Requesting physician: Darnell Astorga Reason for consult: dyspnea, hypoxemia, pneumonia, abnormal CXR/CT Chief complaint: Dyspnea, body aches, fever, headache History of present illness: This is a 55-year-old white female patient without significant medical history, who presented to the emergency department on 06/18/2021 with symptoms of worsening dyspnea, cough. Patient was diagnosed with COVID-[address] Tsai's office on 06/10/2021. Initial onset of symptoms was on 06/07/2021 with body aches, fever, headaches and progressively became worse. Patient is on non- vaccinated against COVID-19, her was having similar symptoms. They requested a prescription for azithromycin and steroids from Dr. Tsai's office which was prescribed and after completing the treatment patient did not feel better. Patient received infusional monoclonal antibody on an outpatient basis. On presentation in the emergency department on 06/18/2021 patient was found to be hypoxic with a pulse ox in the 80s. She was placed on supplemental oxygen currently at 6 L her chest x-ray shows bilateral pneumonia. Patient has had poor appetite, but no nausea, no vomiting no diarrhea or abdominal pain. Her lab work showed CBC which was unremarkable, d-dimer was negative at 0.39 and subsequent follow-up level was 0.48 also negative, INR was 0.9, sodium was 131 on admission, potassium was 4.5, chloride was 96, CO2 is 25, BUN is 17, creatinine 0.67, plasma lactic acid was 1.0, ferritin level was 956, AST was 60, ALT was 41, LDH was 835, troponins were less than 0.0122, pro calcitonin level was negative at 0.11. Patient was started on Decadron 6 mg IV push daily, prophylactic Lovenox 40 mg daily, COVID-19 vitamins. Patient is outside the window for Remdesivir. Review of Systems All systems: negative Constitutional: Denies chills, Denies fever Eyes: denies blurred vision, denies pain Ears, nose, mouth and throat: Denies headache, Denies sore throat Cardiovascular: Denies chest pain, Denies shortness of breath Respiratory: Reports cough, Reports dyspnea Gastrointestinal: Denies abdominal pain, Denies diarrhea, Denies nausea, Denies vomiting Genitourinary: Denies dysuria, Denies hematuria Musculoskeletal: Denies myalgias Integumentary: Denies pruritus, Denies rash Neurological: Denies numbness, Denies weakness Psychiatric: Denies anxiety, Denies depression Endocrine: Denies fatigue, Denies weight change Past Medical History Past Medical History: No Reported History History of Any Multi-Drug Resistant Organisms: None Reported Past Surgical History: Hysterectomy Past Psychological History: No Psychological Hx Reported Smoking Status: Never smoker Past Alcohol Use History: None Reported Past Drug Use History: None Reported - Past Family History Mother Family Medical History: Diabetes Mellitus, Hypertension Medications and Allergies Home Medications Medication Instructions Recorded Confirmed Type Cholecalciferol [Vitamin D3 (125 125 mcg PO HS 06/18/21 06/18/21 History Mcg = 5000 Iu)] Zinc Gluconate [Zinc] 50 mg PO HS 06/18/21 06/18/21 History Allergies Allergy/AdvReac Type Severity Reaction Status Date / Time Tetracyclines Allergy Rash/Hives Verified 06/18/21 12:27 aspirin AdvReac Abdominal Verified 06/18/21 12:27 Pain Physical Exam Vitals: Vital Signs Temp Pulse Pulse Resp BP BP Pulse Ox 06/19/21 13:27 97.8 F 58 L 17 118/72 92 L 06/19/21 12:00 90 L 06/19/21 10:01 97.9 F 61 18 127/72 90 L 06/19/21 05:59 98.4 F 64 16 107/67 90 L 06/19/21 02:00 98.4 F 62 16 109/67 90 L 06/18/21 22:06 97.9 F 66 17 111/68 90 L 06/18/21 16:40 98.5 F 67 18 105/65 91 L 06/18/21 16:25 99.0 F 67 18 119/79 93 L 06/18/21 15:54 67 18 119/79 93 L 06/18/21 14:49 76 18 113/75 92 L 06/18/21 14:47 20 Intake and Output 06/18/21 06/19/21 06/19/21 22:59 06:59 14:59 Other: Voiding Method Toilet # Voids 2 2 GENERAL EXAM: Alert, very pleasant, 55-year-old white female, on 6 L of oxygen, sitting up in the recliner, on 6 L her pulse ox is 92% comfortable in no apparent distress. HEAD: Normocephalic/atraumatic. EYES: Normal reaction of pupils, equal size. Conjunctiva pink, sclera white. NOSE: Clear with pink turbinates. THROAT: No erythema or exudates. NECK: No masses, no JVD, no thyroid enlargement, no adenopathy. CHEST: No chest wall deformity. Symmetrical expansion. LUNGS: Equal air entry with bilateral crackles CVS: Regular rate and rhythm, normal S1 and S2, no gallops, no murmurs, no rubs ABDOMEN: Soft, nontender. No hepatosplenomegaly, normal bowel sounds, no guarding or rigidity. EXTREMITIES: No clubbing, no edema, no cyanosis, 2+ pulses and upper and lower extremities. MUSCULOSKELETAL: Muscle strength and tone normal. SPINE: No scoliosis or deformity SKIN: No rashes CENTRAL NERVOUS SYSTEM: Alert and oriented -3. No focal deficits, tone is normal in all 4 extremities. PSYCHIATRIC: Alert and oriented -3. Appropriate affect. Intact judgment and insight. Results - Laboratory Findings CBC and BMP: 06/19/21 05:16 06/19/21 05:16 PT/INR, D-dimer PT 10.1 sec (9.0-12.0) 06/18/21 12:07 INR 0.9 (<1.2) 06/18/21 12:07 D-Dimer 0.48 mg/L FEU (<0.60) 06/19/21 05:16 Abnormal lab findings: Abnormal Labs 06/18/21 06/18/21 06/18/21 12:07 12:07 14:50 Sodium 131 L Chloride 96 L BUN/Creatinine Ratio Glucose Ferritin 956.0 H AST 60 H ALT 41 H Lactate Dehydrogenase 835 H C-Reactive Protein 17.7 H Albumin 3.4 L Albumin/Globulin Ratio Procalcitonin 0.11 H Coronavirus (PCR) Detected A 06/19/21 05:16 Sodium 132 L Chloride BUN/Creatinine Ratio 30.09 H Glucose 224 H Ferritin AST 59 H ALT 55 H Lactate Dehydrogenase C-Reactive Protein 9.40 H Albumin 3.5 L Albumin/Globulin Ratio 1.09 L Procalcitonin Coronavirus (PCR) - Diagnostic Findings Chest x-ray: report reviewed, image reviewed Assessment and Plan Plan: Assessment: #1. Acute hypoxic respiratory failure related to acute COVID-19 related pneumonia, with initial onset of symptoms on 06/07/2021. Tested positive on 06/10/2021, received outpatient treatment with azithromycin and steroids, and monoclonal antibody infusion. Presented to the emergency department on 06/18/2021 with worsening dyspnea, hypoxia on pulse ox in the 80s. She is outside the window for Remdesivir. She isn't nonvaccinated adult against COVID- 19 #2. Elevated inflammatory markers related to the above #3. Mildly elevated transaminases #4. Mild hyponatremia likely related to poor oral intake Plan: Continue current medical treatment Continue Decadron Continue prophylactic Lovenox and multivitamins Patient is not a candidate for Remdesivir due to length of symptoms We'll continue to monitor her condition, in case of worsening dyspnea or hypoxia and requiring 100% FiO2 will consider Baricitinib I performed a history & physical examination of the patient and discussed their management with my nurse practitioner, Roseline Gastelum. I reviewed the nurse practitioner's note and agree with the documented findings and plan of care. Lung sounds are positive for diminished breath sounds diffuse crackles throughout the lung young. The findings and the impression was discussed with the patient. I attest to the documentation by the nurse practitioner. Time with Patient: Greater than 30
[2021-06-19] MEDS: ACETAMINOPHEN TAB 325 MG TAB PO PRN (20:45)
[2021-06-19] MEDS: CHOLECALCIFEROL 125 MCG (5000 IU) TABLET PO SCH (21:48)
[2021-06-19] MEDS: ZINC SULFATE 220 MG CAP PO SCH (21:49)
[2021-06-19] MEDS: MELATONIN 5 MG TABLET PO SCH (22:45)
--- NOTE | 2021-06-19 23:16 | PN ---
PROGRESS NOTE DATE OF SERVICE: 06/19/2021 REASON FOR FOLLOWUP: COVID-19 pneumonia. INTERVAL HISTORY: The patient is afebrile. She mentioned breathing slightly comfortably. The patient denies having any chest pain. No worsening cough or sputum production. No abdominal pain or diarrhea. PHYSICAL EXAMINATION: Blood pressure 108/67, pulse of 59, temperature 97.9. She is 90% on 6 L nasal cannula. General description is a middle-aged female up in the bed in no distress. Respiratory system: Unlabored breathing, decreased intensity of breath sounds. No wheeze. Heart S1, S2. Regular rate and rhythm. Abdomen soft, no tenderness. LABS: Hemoglobin is 14, white count 5. D-dimer is 0.48, creatinine 0.6. DIAGNOSTIC IMPRESSION AND PLAN: Patient with acute COVID-19 pneumonia in this patient out of therapeutic window for remdesivir. Patient is currently on Decadron, Lovenox, zinc and ascorbic acid; to continue along with respiratory support and monitor clinical course closely. MMODL / IJN: [id number] /
[2021-06-20] MEDS: ALBUTEROL HFA INHALER INHALATION PRN ×3 (07:39→16:36)
[2021-06-20] MEDS: DEXAMETHASONE SOD PHOSPHATE 10 MG/ML 1 ML VIAL IVP SCH (08:36)
[2021-06-20] MEDS: ENOXAPARIN 40 MG/0.4 ML SYRINGE SQ SCH (08:36)
[2021-06-20] MEDS: PANTOPRAZOLE 40 MG TABLET PO SCH (08:36)
[2021-06-20] MEDS: DOCUSATE 100 MG CAP PO SCH ×2 (08:36→20:32)
[2021-06-20] MEDS: ASCORBIC ACID 500 MG TAB PO SCH ×2 (08:36→20:32)
[2021-06-20 09:11] LABS: African American GFR (CKD) 120.1 (60.0-200.0); Albumin 3.2 g/dL (3.8-4.9); Albumin/Globulin Ratio 1.14 (1.60-3.17); Anion Gap 9.7 mmol/L (10.00-18.00); BUN/Creat Ratio 26.22 Ratio (12.00-20.00); Blood Urea Nitrogen 15.6 mg/dL (9.0-27.0); Calcium 8.7 mg/dL (8.7-10.3); Carbon Dioxide 23.6 mmol/L (20.0-27.5); Globulin 2.8 g/dL (1.6-3.3); Magnesium 2.1 mg/dL (1.5-2.4); Non-African American GFR(CKD) 103.6 (60.0-200.0); Potassium 4.8 mmol/L (3.5-5.5); Total Bilirubin 0.3 mg/dL (0.30-1.20)
--- NOTE | 2021-06-20 11:05 | P.PN ---
<Edgar Rodriguez - Last Filed: 06/20/21 18:53> Subjective Progress Note Date: 06/20/21 Hospital course: Patient is a very pleasant 55-year-old female without significant medical history. She presented to the emergency department on 06/18/2021 with symptoms of worsening dyspnea and cough status post recent diagnosis of Covid 19 virus infection by her PCP Dr. Tsai on 06/10/2021 shortly after symptoms began on 06/07/21. Upon arrival to the emergency department patient was found to be hypoxic 82% on room air requiring oxygen supplementation. She underwent full workup, CBC unremarkable, d-dimer 0.48, hyponatremia with sodium of 132, and slightly elevated liver enzymes with AST of 59 and ALP of 55. CRP of 9.40 and troponin less than 0.0122 draws. EKG completed showing normal sinus rhythm at 69 bpm with no noted T wave or ST abnormality showing no signs of acute ischemia. Chest x-ray positive for pneumonia. Patient was admitted under our services for acute hypoxic respiratory failure secondary to Covid pneumonia with consultation to pulmonology. Physical exam: Patient seen and fully evaluated at the bedside. Patient currently on 6 L O2 via nasal cannula maintaining SpO2 of 91%. She reports continued dry cough and significant shortness of breath with minimal exertion. Patient denies having any chest pain, palpitations, dizziness, lightheadedness, or experiencing any numbness/tingling/weakness/swelling in her extremities. Vital signs reviewed and stable. General: Nontoxic, no distress and appears stated age. Derm: Skin warm and dry, normal coloration for ethnicity. Head: Atraumatic, normocephalic and symmetric. Eyes: EOMs intact, no lid lag, and anicteric sclera Mouth: no lip lesions, mucus membranes moist Cardiovascular: regular rate and rhythm with normal S1S2, no murmur, positive p osterior tibial pulses bilaterally, and cap refill < 2 seconds. Lungs: Respirations even, regular, and unlabored on 6 L O2 via nasal cannula. Lungs coarse crackles bilateral bases, no rhonchi, no rales, no wheezing, and no accessory muscle usage. Abdominal: soft, nontender to palpation, no guarding, no appreciable organomegaly Ext: ROM intact. No gross muscle atrophy, no edema, no contractures Neuro: Speech clear, face symmetrical and CN II-XII grossly intact with no noted focal neuro deficits Psych: Alert and oriented to person, place, time, and situation. Appropriate and pleasant affect. Assessment and Plan of Care: Acute respiratory failure with hypoxia secondary to COVID 19 pneumonia -Oxygenation to be administered and titrated as needed to maintain SPO2 equal to or greater than 90% -Telemetry monitoring. -Continue trending inflammatory markers -Encourage Incentive Spirometry 10-15x hourly while awake -Steroids: Decadron 6 mg daily -Continue vitamin C, Vitamin D, and Zinc. -Pulmonology following, appreciate further recommendations. -DVT prophylaxis with Lovenox. -Strict Droplet plus Contact precautions -Patient is out of the window for Remdesivir Hyponatremia, resolved CODE STATUS: Full code DVT prophylaxis: Lovenox Discussed with: Patient and RN Anticipated discharge date: Clinical course to determine Anticipated discharge place: Home A total of 40 minutes was spent on the care of this complex patient more than 50% of the time was spent in counseling and care coordination. Objective - Vital Signs Vital signs: Vital Signs Temp 98.4 F 06/20/21 05:54 Pulse 50 L 06/20/21 05:54 Resp 14 06/20/21 05:54 BP 112/65 06/20/21 05:54 Pulse Ox 95 06/20/21 05:54 Intake & Output 06/19/21 06/20/21 06/20/21 18:59 06:59 18:59 Intake Total 180 Balance 180 Intake: Oral 180 Other: Voiding Method Toilet Toilet # Voids 2 2 # Bowel Movements 0 - Labs CBC & Chem 7: 06/19/21 05:16 06/20/21 05:42 Labs: Abnormal Lab Results - Last 24 Hours (Table) 06/19/21 06/20/21 Range/Units 05:16 05:42 Sodium 132 L (135-145) mmol/L Anion Gap 9.70 L (10.00-18.00) mmol/L BUN/Creatinine Ratio 30.09 H 26.22 H (12.00-20.00) Ratio Glucose 224 H 204 H (70-110) mg/dL AST 59 H 43 H (13-35) U/L ALT 55 H 55 H (8-44) U/L C-Reactive Protein 9.40 H (0.00-0.80) mg/dL Total Protein 6.0 L (6.2-8.2) g/dL Albumin 3.5 L 3.2 L (3.8-4.9) g/dL Albumin/Globulin Ratio 1.09 L 1.14 L (1.60-3.17) g/dL <Kellen Vasquez - Last Filed: 06/20/21 19:22> Subjective Edgar Rodriguez, HEALTH TECHNICAL WRITER rendered care for this patient independently, reviewed the findings and plan as documented in the note above. I did not physically speak with or examine the patient on this date. Objective - Vital Signs Vital signs: Vital Signs Temp 98.0 F 06/20/21 18:00 Pulse 52 L 06/20/21 18:00 Resp 18 06/20/21 18:00 BP 110/47 06/20/21 18:00 Pulse Ox 91 L 06/20/21 18:00 Intake & Output 06/20/21 06/20/21 06/21/21 06:59 18:59 06:59 Intake Total 180 Balance 180 Intake: Oral 180 Other: Voiding Method Toilet Toilet # Voids 2 2 # Bowel Movements 0 - Labs CBC & Chem 7: 06/19/21 05:16 06/20/21 05:42 Labs: Abnormal Lab Results - Last 24 Hours (Table) 06/20/21 Range/Units 05:42 Anion Gap 9.70 L (10.00-18.00) mmol/L BUN/Creatinine Ratio 26.22 H (12.00-20.00) Ratio Glucose 204 H (70-110) mg/dL AST 43 H (13-35) U/L ALT 55 H (8-44) U/L Total Protein 6.0 L (6.2-8.2) g/dL Albumin 3.2 L (3.8-4.9) g/dL Albumin/Globulin Ratio 1.14 L (1.60-3.17) g/dL
--- NOTE | 2021-06-20 14:57 | P.PN ---
Subjective Progress Note Date: 06/20/21 This is a 55-year-old white female patient without significant medical history, who presented to the emergency department on 06/18/2021 with symptoms of worsening dyspnea, cough. Patient was diagnosed with COVID-[address] Tsai's office on 06/10/2021. Initial onset of symptoms was on 06/07/2021 with body aches, fever, headaches and progressively became worse. Patient is on non- vaccinated against COVID-19, her was having similar symptoms. They requested a prescription for azithromycin and steroids from Dr. Tsai's office which was prescribed and after completing the treatment patient did not feel better. Patient received infusional monoclonal antibody on an outpatient basis. On presentation in the emergency department on 06/18/2021 patient was found to be hypoxic with a pulse ox in the 80s. She was placed on supplemental oxygen currently at 6 L her chest x-ray shows bilateral pneumonia. Patient has had poor appetite, but no nausea, no vomiting no diarrhea or abdominal pain. Her lab work showed CBC which was unremarkable, d-dimer was negative at 0.39 and subsequent follow-up level was 0.48 also negative, INR was 0.9, sodium was 131 on admission, potassium was 4.5, chloride was 96, CO2 is 25, BUN is 17, creatinine 0.67, plasma lactic acid was 1.0, ferritin level was 956, AST was 60, ALT was 41, LDH was 835, troponins were less than 0.0122, pro calcitonin level was negative at 0.11. Patient was started on Decadron 6 mg IV push daily, prophylactic Lovenox 40 mg daily, COVID-19 vitamins. Patient is outside the window for Remdesivir. On 06/20/2021 patient seen in follow-up on medical surgical floor, she is currently on 6 L of oxygen, and her pulse ox is 96%, FiO2 has been cut back to 5 L, seems to be breathing comfortably, she has been doing awake self re positioning in bed, on her left side, and the right side, and she states she slept on her abdomen last night. He tolerated it fairly well. No worsening dyspnea, still coughing, lung sounds reveal some mild crackles at bilateral bases, no complaints of chest pain. Vital signs have been stable, no fever or chills, continues on Decadron, prophylactic Lovenox, and multivitamins. No new chest x-rays, follow-up inflammatory markers are still pending. D-dimer from yesterday on 06/19/2021 was 0.48. Objective - Vital Signs Vital signs: Vital Signs Temp 97.8 F 06/20/21 10:00 Pulse 57 L 06/20/21 10:00 Resp 19 06/20/21 10:00 BP 104/68 06/20/21 10:00 Pulse Ox 96 06/20/21 14:27 Intake & Output 06/19/21 06/20/21 06/20/21 18:59 06:59 18:59 Intake Total 180 Balance 180 Intake: Oral 180 Other: Voiding Method Toilet Toilet # Voids 2 2 # Bowel Movements 0 - Exam GENERAL EXAM: Alert, very pleasant, 55-year-old white female, on 6 L of oxygen, sitting up in the recliner, on 6 L her pulse ox is 96% comfortable in no apparent distress. HEAD: Normocephalic/atraumatic. EYES: Normal reaction of pupils, equal size. Conjunctiva pink, sclera white. NOSE: Clear with pink turbinates. THROAT: No erythema or exudates. NECK: No masses, no JVD, no thyroid enlargement, no adenopathy. CHEST: No chest wall deformity. Symmetrical expansion. LUNGS: Equal air entry with bilateral crackles CVS: Regular rate and rhythm, normal S1 and S2, no gallops, no murmurs, no rubs ABDOMEN: Soft, nontender. No hepatosplenomegaly, normal bowel sounds, no guarding or rigidity. EXTREMITIES: No clubbing, no edema, no cyanosis, 2+ pulses and upper and lower extremities. MUSCULOSKELETAL: Muscle strength and tone normal. SPINE: No scoliosis or deformity SKIN: No rashes CENTRAL NERVOUS SYSTEM: Alert and oriented -3. No focal deficits, tone is normal in all 4 extremities. PSYCHIATRIC: Alert and oriented -3. Appropriate affect. Intact judgment and i nsight. - Labs CBC & Chem 7: 06/19/21 05:16 06/20/21 05:42 Labs: Abnormal Lab Results - Last 24 Hours (Table) 06/20/21 Range/Units 05:42 Anion Gap 9.70 L (10.00-18.00) mmol/L BUN/Creatinine Ratio 26.22 H (12.00-20.00) Ratio Glucose 204 H (70-110) mg/dL AST 43 H (13-35) U/L ALT 55 H (8-44) U/L Total Protein 6.0 L (6.2-8.2) g/dL Albumin 3.2 L (3.8-4.9) g/dL Albumin/Globulin Ratio 1.14 L (1.60-3.17) g/dL Assessment and Plan Plan: Assessment: #1. Acute hypoxic respiratory failure related to acute COVID-19 related pneumonia, with initial onset of symptoms on 06/07/2021. Tested positive on 06/10/2021, received outpatient treatment with azithromycin and steroids, and monoclonal antibody infusion. Presented to the emergency department on 06/18/2021 with worsening dyspnea, hypoxia on pulse ox in the 80s. She is outside the window for Remdesivir. She is a nonvaccinated adult against COVID- 19 #2. Elevated inflammatory markers related to the above #3. Mildly elevated transaminases #4. Mild hyponatremia likely related to poor oral intake Plan: Continue current medical treatment Continue Decadron Continue prophylactic Lovenox and multivitamins Follow-up d-dimer and inflammatory markers for tomorrow, obtain basic labs including CBC and BMP Patient has been doing good with awake repositioning including self proning in bed FiO2 to keep O2 sats at or above 90% I performed a history & physical examination of the patient and discussed their management with my nurse practitioner, Roseline Gastelum. I reviewed the nurse practitioner's note and agree with the documented findings and plan of care. Lung sounds are positive for diminished breath sounds diffuse crackles throughout the lung young. The findings and the impression was discussed with the patient. I attest to the documentation by the nurse practitioner. Time with Patient: Less than 30
[2021-06-20] MEDS: CHOLECALCIFEROL 125 MCG (5000 IU) TABLET PO SCH (20:32)
[2021-06-20] MEDS: ZINC SULFATE 220 MG CAP PO SCH (20:32)
[2021-06-20] MEDS: MELATONIN 5 MG TABLET PO SCH (20:32)
--- NOTE | 2021-06-20 22:14 | PN ---
PROGRESS NOTE DATE OF SERVICE: 06/20/2021 REASON FOR FOLLOWUP: COVID-19 pneumonia. INTERVAL HISTORY: The patient is afebrile. The patient is breathing more comfortably. The patient denies having any chest pain. No worsening cough or sputum production. No abdominal pain or diarrhea. PHYSICAL EXAMINATION: Blood pressure 110/47, pulse of 52, temperature 98. She is % on 6 L nasal cannula. General description is a middle-aged female up in the bed in no distress. Respiratory system: Unlabored breathing, coarse breath sounds at the base Heart S1, S2. Regular rate and rhythm. Abdomen soft, no tenderness. LABS: Creatinine 0.6. DIAGNOSTIC IMPRESSION AND PLAN: Patient with acute respiratory failure secondary to COVID-19 pneumonia in this patient who did have some clinical improvement. Patient to continue with dexamethasone, Lovenox, zinc and ascorbic acid along with respiratory support, and monitor clinical course closely. MMNLEIAL / HOLLYN: [id number] /
[2021-06-21] MEDS: ACETAMINOPHEN TAB 325 MG TAB PO PRN (05:29)
[2021-06-21] MEDS: ENOXAPARIN 40 MG/0.4 ML SYRINGE SQ SCH (08:56)
[2021-06-21] MEDS: PANTOPRAZOLE 40 MG TABLET PO SCH (08:57)
[2021-06-21] MEDS: DEXAMETHASONE SOD PHOSPHATE 10 MG/ML 1 ML VIAL IVP SCH (08:57)
[2021-06-21] MEDS: ASCORBIC ACID 500 MG TAB PO SCH ×2 (08:57→20:47)
[2021-06-21] MEDS: DOCUSATE 100 MG CAP PO SCH ×2 (08:57→20:47)
[2021-06-21 09:40] LABS: HCT 44.4 % (37.2-46.3); HGB 14.4 g/dL (12.0-15.0); MCH 29.6 pg (27.0-32.0); MCHC 32.4 g/dL (32.0-37.0); MCV 91.2 fL (80.0-97.0); Mean Platelet Volume 9.9 fL (9.5-12.2); Platelet Count 365 X 10*3/uL (140-440); RBC 4.87 X 10*6/uL (4.10-5.20); RDW 12.3 % (11.5-14.5)
[2021-06-21] MEDS: ALBUTEROL HFA INHALER INHALATION PRN ×2 (10:10→18:03)
[2021-06-21 10:47] LABS: C Reactive Protein 3.2 mg/dL (0.00-0.80)
[2021-06-21 11:02] LABS: African American GFR (CKD) 119.8 (60.0-200.0); Albumin 3.4 g/dL (3.8-4.9); Albumin/Globulin Ratio 1.21 (1.60-3.17); Blood Urea Nitrogen 14.4 mg/dL (9.0-27.0); Globulin 2.8 g/dL (1.6-3.3); Non-African American GFR(CKD) 103.3 (60.0-200.0); Potassium 4.7 mmol/L (3.5-5.5); Total Bilirubin 0.5 mg/dL (0.30-1.20); Total Protein 6.2 g/dL (6.2-8.2)
--- NOTE | 2021-06-21 12:14 | P.PN ---
Subjective Progress Note Date: 06/21/21 This is a 55-year-old white female patient without significant medical history, who presented to the emergency department on 06/18/2021 with symptoms of worsening dyspnea, cough. Patient was diagnosed with COVID-[address] Tsai's office on 06/10/2021. Initial onset of symptoms was on 06/07/2021 with body aches, fever, headaches and progressively became worse. Patient is on non- vaccinated against COVID-19, her was having similar symptoms. They requested a prescription for azithromycin and steroids from Dr. Tsai's office which was prescribed and after completing the treatment patient did not feel better. Patient received infusional monoclonal antibody on an outpatient basis. On presentation in the emergency department on 06/18/2021 patient was found to be hypoxic with a pulse ox in the 80s. She was placed on supplemental oxygen currently at 6 L her chest x-ray shows bilateral pneumonia. Patient has had poor appetite, but no nausea, no vomiting no diarrhea or abdominal pain. Her lab work showed CBC which was unremarkable, d-dimer was negative at 0.39 and subsequent follow-up level was 0.48 also negative, INR was 0.9, sodium was 131 on admission, potassium was 4.5, chloride was 96, CO2 is 25, BUN is 17, creatinine 0.67, plasma lactic acid was 1.0, ferritin level was 956, AST was 60, ALT was 41, LDH was 835, troponins were less than 0.0122, pro calcitonin level was negative at 0.11. Patient was started on Decadron 6 mg IV push daily, prophylactic Lovenox 40 mg daily, COVID-19 vitamins. Patient is outside the window for Remdesivir. On 06/20/2021 patient seen in follow-up on medical surgical floor, she is currently on 6 L of oxygen, and her pulse ox is 96%, FiO2 has been cut back to 5 L, seems to be breathing comfortably, she has been doing awake self r epositioning in bed, on her left side, and the right side, and she states she slept on her abdomen last night. He tolerated it fairly well. No worsening dyspnea, still coughing, lung sounds reveal some mild crackles at bilateral bases, no complaints of chest pain. Vital signs have been stable, no fever or chills, continues on Decadron, prophylactic Lovenox, and multivitamins. No new chest x-rays, follow-up inflammatory markers are still pending. D-dimer from yesterday on 06/19/2021 was 0.48. The patient is seen today 06/21/2021 in follow-up on the regular medical floor. She is currently resting in bed. Awake and alert in no acute distress. She states she is feeling about the same today compared to yesterday. No better. No worse. Currently weighing on her right side. O2 saturation in the low 90s on 4 L/m per nasal cannula. Afebrile. White count 14.0. Hemoglobin 14.4. D-dimer 1.43. Sodium 140. Potassium 4.7. Creatinine 0.6. AST 30. ALT 51. LDH 265. C-reactive protein 3.20. She is continued on Decadron, Lovenox, vitamin supplements. Objective - Vital Signs Vital signs: Vital Signs Temp 98.8 F 06/21/21 09:51 Pulse 61 06/21/21 09:51 Resp 18 06/21/21 09:51 BP 95/58 06/21/21 09:51 Pulse Ox 91 L 06/21/21 09:51 Intake & Output 06/20/21 06/21/21 06/21/21 18:59 06:59 18:59 Other: Voiding Method Toilet Toilet Toilet # Voids 2 2 - Exam GENERAL EXAM: Alert, very pleasant 56-year-old female patient, on 4 L nasal cannula, fairly comfortable in no apparent distress. HEAD: Normocephalic. EYES: Normal reaction of pupils, equal size. NOSE: Clear with pink turbinates. THROAT: No erythema or exudates. NECK: No masses, no JVD. CHEST: No chest wall deformity. LUNGS: Equal air entry with coarse crackles in the bilateral bases. CVS: S1 and S2 normal with no audible murmur, regular rhythm. ABDOMEN: No hepatosplenomegaly, normal bowel sounds, no guarding or rigidity. SPINE: No scoliosis or deformity SKIN: No rashes CENTRAL NERVOUS SYSTEM: No focal deficits, tone is normal in all 4 extremities. EXTREMITIES: There is no peripheral edema. No clubbing, no cyanosis. Peripheral pulses are intact. - Labs CBC & Chem 7: 06/21/21 05:27 06/21/21 05:27 Labs: Abnormal Lab Results - Last 24 Hours (Table) 06/21/21 06/21/21 06/21/21 Range/Units 05:27 05:27 05:27 WBC 14.00 H (4.50-10.00) X 10*3/uL D-Dimer 1.43 H (<0.60) mg/L FEU BUN/Creatinine Ratio 24.00 H (12.00-20.00) Ratio ALT 51 H (8-44) U/L Lactate Dehydrogenase 265 H (120-246) U/L C-Reactive Protein 3.20 H (0.00-0.80) mg/dL Albumin 3.4 L (3.8-4.9) g/dL Albumin/Globulin Ratio 1.21 L (1.60-3.17) g/dL Assessment and Plan Assessment: 1 Acute hypoxic respiratory failure related to acute COVID-19 related pneumonia, with initial onset of symptoms on 06/07/2021. Tested positive on 06/10/2021, received outpatient treatment with azithromycin and steroids, and monoclonal antibody infusion. Presented to the emergency department on 06/18/2021 with worsening dyspnea, hypoxia on pulse ox in the 80s. She is outside the window for Remdesivir. She is a nonvaccinated adult against COVID- 19. Currently on 4 L nasal cannula 2 Elevated inflammatory markers related to the above 3 Mildly elevated transaminases 4 Mild hyponatremia likely related to poor oral intake Plan: The patient was seen and evaluated Continued on Decadron, Lovenox, vitamin supplements Follow-up chest x-ray and inflammatory markers in the a.m. Titrate the FiO2 as tolerated We'll continue to follow I, the cosigning physician, performed a history & physical examination of the patient. Lungs sounds with coarse crackles in the bilateral bases. Maintaining good O2 saturations in the 90s on 4 L/m per nasal cannula. I discussed the assessment and plan of care with my nurse practitioner, Meghna Erwin. I attest to the above note as dictated by her.
--- NOTE | 2021-06-21 15:12 | P.PN ---
Subjective Progress Note Date: 06/21/21 Hospital course: Patient is a very pleasant 55-year-old female without significant medical history. She presented to the emergency department on 06/18/2021 with symptoms of worsening dyspnea and cough status post recent diagnosis of Covid 19 virus in fection by her PCP Dr. Tsai on 06/10/2021 shortly after symptoms began on 06/07/21. Upon arrival to the emergency department patient was found to be hypoxic 82% on room air requiring oxygen supplementation. She underwent full workup, CBC unremarkable, d-dimer 0.48, hyponatremia with sodium of 132, and slightly elevated liver enzymes with AST of 59 and ALP of 55. CRP of 9.40 and troponin less than 0.0122 draws. EKG completed showing normal sinus rhythm at 69 bpm with no noted T wave or ST abnormality showing no signs of acute ischemia. Chest x-ray positive for pneumonia. Patient was admitted under our services for acute hypoxic respiratory failure secondary to Covid pneumonia with consultation to pulmonology. Physical exam: Patient seen and fully evaluated at the bedside. Patient currently on 5 L O2 via nasal cannula maintaining SpO2 of 90%. She reports continued dry cough and continues to have significant shortness of breath with minimal exertion resulting in oxygen desaturations down into the low 80s. Patient eager about going home, ambulatory pulse ox was obtained and patient desaturated down to 82% on 5 L with ambulation. Patient remains unstable for discharge at this time and informed she will need at least 1 more night of hospitalization. Morning labs reviewed. Patient will leukocytosis with WBC count of 14.0, d-dimer elevating at 1.43 and CRP of 3.20. Patient with denies having any chest pain, palpitations, dizziness, lightheadedness, or experiencing any numbness/tingling/weakness/swelling in her extremities. We will obtain bilateral lower extremity venous Dopplers to rule out DVT and CT angiogram of chest to rule out PE. At this time patient to continue treatment with continued oxygen supplementation along with Decadron, zinc, vitamin C, vitamin D, and Lovenox. Vital signs reviewed and stable. General: Nontoxic, no distress and appears stated age. Derm: Skin warm and dry, normal coloration for ethnicity. Head: Atraumatic, normocephalic and symmetric. Eyes: EOMs intact, no lid lag, and anicteric sclera Mouth: no lip lesions, mucus membranes moist Cardiovascular: regular rate and rhythm with normal S1S2, no murmur, positive posterior tibial pulses bilaterally, and cap refill < 2 seconds. Lungs: Respirations even, regular, and unlabored on 5 L O2 via nasal cannula. Lungs coarse crackles bilateral bases, no rhonchi, no rales, no wheezing, and no accessory muscle usage. Abdominal: soft, nontender to palpation, no guarding, no appreciable organomegaly Ext: ROM intact. No gross muscle atrophy, no edema, no contractures Neuro: Speech clear, face symmetrical and CN II-XII grossly intact with no noted focal neuro deficits Psych: Alert and oriented to person, place, time, and situation. Appropriate and pleasant affect. Assessment and Plan of Care: Acute respiratory failure with hypoxia secondary to COVID 19 pneumonia -Oxygenation to be administered and titrated as needed to maintain SPO2 equal to or greater than 90% -Telemetry monitoring. -Continue trending inflammatory markers -Encourage Incentive Spirometry 10-15x hourly while awake -Steroids: Decadron 6 mg daily -Continue vitamin C, Vitamin D, and Zinc. -Pulmonology following, appreciate further recommendations. -DVT prophylaxis with Lovenox. -Strict Droplet plus Contact precautions -Patient is out of the window for Remdesivir. Elevated d-dimer -CTA to be completed to rule out PE -Bilateral lower extremity venous Dopplers to be completed to rule out DVT Hyponatremia, resolved CODE STATUS: Full code DVT prophylaxis: Lovenox Discussed with: Patient and RN Anticipated discharge date: Clinical course to determine Anticipated discharge place: Home A total of 40 minutes was spent on the care of this complex patient more than 50% of the time was spent in counseling and care coordination. Objective - Vital Signs Vital signs: Vital Signs Temp 99.6 F 06/21/21 06:00 Pulse 64 06/21/21 06:00 Resp 17 06/21/21 06:00 BP 102/64 06/21/21 06:00 Pulse Ox 89 L 06/21/21 06:00 Intake & Output 06/20/21 06/21/21 06/21/21 18:59 06:59 18:59 Other: Voiding Method Toilet Toilet # Voids 2 2 - Labs CBC & Chem 7: 06/21/21 05:27 06/21/21 05:27 Labs: Abnormal Lab Results - Last 24 Hours (Table) 06/20/21 06/21/21 Range/Units 05:42 05:27 D-Dimer 1.43 H (<0.60) mg/L FEU Anion Gap 9.70 L (10.00-18.00) mmol/L BUN/Creatinine Ratio 26.22 H (12.00-20.00) Ratio Glucose 204 H (70-110) mg/dL AST 43 H (13-35) U/L ALT 55 H (8-44) U/L Total Protein 6.0 L (6.2-8.2) g/dL Albumin 3.2 L (3.8-4.9) g/dL Albumin/Globulin Ratio 1.14 L (1.60-3.17) g/dL
--- NOTE | 2021-06-21 16:13 | US ---
EXAMINATION TYPE: US venous doppler duplex LE DATE OF EXAM: 06/21/2021 3:25 PM COMPARISON: NONE CLINICAL HISTORY: Elevated d-dimer, Covid, rule out DVTs. SIDE PERFORMED: Bilateral TECHNIQUE: The lower extremity deep venous system is examined utilizing real time linear array sonog monico with graded compression, doppler sonography and color-flow sonography. VESSELS IMAGED: Common Femoral Vein Deep Femoral Vein Greater Saphenous Vein * Femoral Vein Popliteal Vein Small Saphenous Vein * Proximal Calf Veins (* superficial vessels) Right Leg: Negative for DVT Left Leg: Negative for DVT IMPRESSION: Grayscale, color doppler, spectral doppler imaging performed of the deep veins of the lo wer extremities. There is normal flow, compressibility, vascular waveforms.
--- NOTE | 2021-06-21 17:27 | CT ---
EXAMINATION TYPE: CT chest angio for PE DATE OF EXAM: 06/21/2021 COMPARISON: Radiograph of 1121 HISTORY: covid, difficulty breathing CT DLP: 351.1 mGycm Automated exposure control for dose reduction was used. CONTRAST: CT Chest for pulmonary embolism performed with with IV Contrast, patient injected with 100 mL of Isov ue 370. FINDINGS: LUNGS: There are peripheral groundglass opacities are noted throughout the lungs. Also areas of conso lidation within the groundglass opacities. The large airways are grossly patent. There is no pleural effusion or pneumothorax seen. The tracheobronchial tree is patent. MEDIASTINUM: There is satisfactory enhancement of the pulmonary artery and its branches, there is no CT evidence for pulmonary embolism. There are no greater than 1 cm hilar or mediastinal lymph nodes. No pericardial effusion is seen. OTHER: Diffuse low-attenuation to the liver parenchyma. There is renal cyst with peripheral calcific ation measuring 2.0 cm IMPRESSION: 1. No evidence of pulmonary embolus 2. Scattered peripheral groundglass opacities consistent with atypical pulmonary infection such as co vid. 3. Hepatic steatosis. 4. Left renal cyst with peripheral calcification.
[2021-06-21] MEDS: ZINC SULFATE 220 MG CAP PO SCH (20:47)
[2021-06-21] MEDS: CHOLECALCIFEROL 125 MCG (5000 IU) TABLET PO SCH (20:47)
[2021-06-21] MEDS: MELATONIN 5 MG TABLET PO SCH (20:47)
--- NOTE | 2021-06-21 22:58 | PN ---
PROGRESS NOTE DATE OF SERVICE: 06/21/2021 REASON FOR FOLLOWUP: COVID-19 pneumonia. INTERVAL HISTORY: The patient is afebrile. The patient is breathing slightly comfortably. The patient denies having any chest pain. No worsening cough or sputum production. No abdominal pain or diarrhea. PHYSICAL EXAMINATION: Blood pressure 117/71 with a pulse of , temperature 98.4. She is 94% on 5 L nasal cannula. General description is a middle-aged female up in the bed in no distress. Respiratory system: Unlabored breathing, decreased intensity of breath sounds. No wheeze. Heart S1, S2. Regular rate and rhythm. Abdomen soft, no tenderness. LABS: Hemoglobin is 14.4, white count 14, BUN of 14, creatinine 0.6. DIAGNOSTIC IMPRESSION AND PLAN: Patient with COVID-19 pneumonia in this patient who seems to have shown some clinical improvement. Patient to continue with dexamethasone, Lovenox, zinc and ascorbic acid along with respiratory support. Monitor clinical course closely. MMODL / IJN: [id number] /
--- NOTE | 2021-06-22 07:05 | XR ---
EXAMINATION TYPE: XR chest 1V portable DATE OF EXAM: 06/22/2021 CLINICAL HISTORY: Difficulty breathing and covid progress study. TECHNIQUE: Single AP portable upright view of the chest is obtained. COMPARISON: Chest x-ray from one day earlier and older studies FINDINGS: Persistent bilateral multifocal increased opacities greatest in the periphery. Cardiac lisa houette size is stable and within normal limits. Osseous structures are intact. IMPRESSION: Bilateral multifocal opacities consistent with covid-19 infection redemonstrated. No sign ificant change from most recent x-ray.
[2021-06-22] MEDS: ALBUTEROL HFA INHALER INHALATION PRN ×2 (08:32→12:23)
[2021-06-22] MEDS: DOCUSATE 100 MG CAP PO SCH ×2 (08:45→21:15)
[2021-06-22] MEDS: ENOXAPARIN 40 MG/0.4 ML SYRINGE SQ SCH (08:45)
[2021-06-22] MEDS: ASCORBIC ACID 500 MG TAB PO SCH ×2 (08:45→21:15)
[2021-06-22] MEDS: PANTOPRAZOLE 40 MG TABLET PO SCH (08:46)
[2021-06-22] MEDS: DEXAMETHASONE SOD PHOSPHATE 10 MG/ML 1 ML VIAL IVP SCH (09:14)
[2021-06-22 09:42] LABS: HCT 39.8 % (37.2-46.3); HGB 13.2 g/dL (12.0-15.0); MCH 29.5 pg (27.0-32.0); MCHC 33.2 g/dL (32.0-37.0); Mean Platelet Volume 9.7 fL (9.5-12.2); Platelet Count 351 X 10*3/uL (140-440); RBC 4.47 X 10*6/uL (4.10-5.20); RDW 12.1 % (11.5-14.5); WBC 13.39 X 10*3/uL (4.50-10.00)
[2021-06-22 10:54] LABS: African American GFR (CKD) 127.2 (60.0-200.0); Albumin 3.1 g/dL (3.8-4.9); Albumin/Globulin Ratio 1.24 (1.60-3.17); Anion Gap 11.6 mmol/L (10.00-18.00); BUN/Creat Ratio 30.2 Ratio (12.00-20.00); Blood Urea Nitrogen 15.1 mg/dL (9.0-27.0); C Reactive Protein 12.7 mg/dL (0.00-0.80); Carbon Dioxide 23.4 mmol/L (20.0-27.5); Globulin 2.5 g/dL (1.6-3.3); Magnesium 1.9 mg/dL (1.5-2.4); Non-African American GFR(CKD) 109.7 (60.0-200.0); Potassium 4.6 mmol/L (3.5-5.5); Total Bilirubin 0.6 mg/dL (0.30-1.20); Total Protein 5.6 g/dL (6.2-8.2)
--- NOTE | 2021-06-22 15:50 | PN ---
PROGRESS NOTE DATE OF SERVICE: 06/22/2021 REASON FOR FOLLOWUP: COVID-19 pneumonia. INTERVAL HISTORY: Patient is afebrile. The patient is breathing comfortably. Denies having chest pain. No worsening cough. No sputum production. No nausea. No abdominal pain. No diarrhea. The patient is currently on 5 L nasal cannula. PHYSICAL EXAMINATION: Blood pressure 190/58, pulse 55, temperature 98.8. She is 94% on 5 L nasal cannula. General description is a middle-aged female up in the bed in no distress. Respiratory system: Unlabored breathing. Few coarse crackles at the bases. No wheeze. Heart S1, S2. Regular rate and rhythm. Abdomen soft, no tenderness. LABS: Hemoglobin is 13.8, white count 13.39, D. dimer is down to 1.82, creatinine 0.5. DIAGNOSTIC IMPRESSION AND PLAN: Patient with acute COVID-19 pneumonia in this patient who seems to have shown slow clinical improvement. The patient to continue with dexamethasone, zinc and ascorbic acid and monitor clinical course closely. Continue supportive care. MMODL / IJN: [id number] /
--- NOTE | 2021-06-22 16:02 | P.PN ---
Subjective Progress Note Date: 06/22/21 Hospital course: Patient is a very pleasant 55-year-old female without significant medical history. She presented to the emergency department on 06/18/2021 with symptoms of worsening dyspnea and cough status post recent diagnosis of Covid 19 virus in fection by her PCP Dr. Tsai on 06/10/2021 shortly after symptoms began on 06/07/21. Upon arrival to the emergency department patient was found to be hypoxic 82% on room air requiring oxygen supplementation. She underwent full workup, CBC unremarkable, d-dimer 0.48, hyponatremia with sodium of 132, and slightly elevated liver enzymes with AST of 59 and ALP of 55. CRP of 9.40 and troponin less than 0.0122 draws. EKG completed showing normal sinus rhythm at 69 bpm with no noted T wave or ST abnormality showing no signs of acute ischemia. Chest x-ray positive for pneumonia. Patient was admitted under our services for acute hypoxic respiratory failure secondary to Covid pneumonia with consultation to pulmonology. Physical exam: Patient seen and fully evaluated at the bedside. She remains on 5 L O2 via nasal cannula and continues to have significant desaturations with minimal exertion. Patient remains eager to go home and we will continue to work with patient in attempts to build stamina and endurance to better maintain oxygenation with exertion. Patient instructed to continue use of incentive spirometry and at this time she remain on 5 L O2 via nasal cannula. Arrangements have been made for home oxygen, once patient able to maintain pulse oximetry with exertion on 6 L O2 or less, we will plan for discharge. Patient continues to report feeling of weakness and shortness of breath with exertion otherwise denies having any complaints including headache, lightheadedness, dizziness, chest pain, palpitations, abdominal pain, nausea, vomiting, or experiencing any numbness/tingling/weakness in her extremities. Morning labs reviewed, patient continues to have elevation of inflammatory markers with d- dimer 1.82, LDH of 247, and CRP of 12.7. CTA completed yesterday afternoon revealed no evidence of PE showing scattered peripheral groundglass opacities consistent with atypical pneumonia along with hepatic steatosis. Bilateral lower extremity Dopplers negative for DVTs. At this time patient to continue treatment with continued oxygen supplementation along with Decadron, zinc, vitamin C, vitamin D, and Lovenox. Vital signs reviewed and stable. General: Nontoxic, no distress and appears stated age. Derm: Skin warm and dry, normal coloration for ethnicity. Head: Atraumatic, normocephalic and symmetric. Eyes: EOMs intact, no lid lag, and anicteric sclera Mouth: no lip lesions, mucus membranes moist Cardiovascular: regular rate and rhythm with normal S1S2, no murmur, positive posterior tibial pulses bilaterally, and cap refill < 2 seconds. Lungs: Respirations even, regular, and unlabored on 5 L O2 via nasal cannula. Lungs coarse crackles bilateral bases, no rhonchi, no rales, no wheezing, and no accessory muscle usage. Abdominal: soft, nontender to palpation, no guarding, no appreciable organomegaly Ext: ROM intact. No gross muscle atrophy, no edema, no contractures Neuro: Speech clear, face symmetrical and CN II-XII grossly intact with no noted focal neuro deficits Psych: Alert and oriented to person, place, time, and situation. Appropriate and pleasant affect. Assessment and Plan of Care: Acute respiratory failure with hypoxia secondary to COVID 19 pneumonia -Oxygenation to be administered and titrated as needed to maintain SPO2 equal to or greater than 90% -Telemetry monitoring. -Continue trending inflammatory markers -Encourage Incentive Spirometry 10-15x hourly while awake -Steroids: Decadron 6 mg daily -Continue vitamin C, Vitamin D, and Zinc. -Pulmonology following, appreciate further recommendations. -DVT prophylaxis with Lovenox. -Strict Droplet plus Contact precautions -Patient is out of the window for Remdesivir. Elevated d-dimer -CTA to be completed to rule out PE -Bilateral lower extremity venous Dopplers to be completed to rule out DVT Hyponatremia, resolved CODE STATUS: Full code DVT prophylaxis: Lovenox Discussed with: Patient and RN Anticipated discharge date: Clinical course to determine Anticipated discharge place: Home A total of 40 minutes was spent on the care of this complex patient more than 50% of the time was spent in counseling and care coordination. Objective - Vital Signs Vital signs: Vital Signs Temp 98.3 F 06/22/21 09:30 Pulse 71 06/22/21 09:30 Resp 17 06/22/21 09:30 BP 94/60 06/22/21 09:30 Pulse Ox 90 L 06/22/21 09:30 Intake & Output 06/21/21 06/22/21 06/22/21 18:59 06:59 18:59 Other: Voiding Method Toilet Toilet # Voids 3 # Bowel Movements 1 - Labs CBC & Chem 7: 06/22/21 05:24 06/22/21 05:24 Labs: Abnormal Lab Results - Last 24 Hours (Table) 06/22/21 06/22/21 06/22/21 Range/Units 05:24 05:24 05:24 WBC 13.39 H (4.50-10.00) X 10*3/uL D-Dimer 1.82 H (<0.60) mg/L FEU Creatinine 0.5 L (0.6-1.5) mg/dL BUN/Creatinine Ratio 30.20 H (12.00-20.00) Ratio Glucose 111 H (70-110) mg/dL Lactate Dehydrogenase 247 H (120-246) U/L C-Reactive Protein 12.70 H (0.00-0.80) mg/dL Total Protein 5.6 L (6.2-8.2) g/dL Albumin 3.1 L (3.8-4.9) g/dL Albumin/Globulin Ratio 1.24 L (1.60-3.17) g/dL
--- NOTE | 2021-06-22 16:50 | P.PN ---
Subjective Progress Note Date: 06/22/21 This is a 55-year-old white female patient without significant medical history, who presented to the emergency department on 06/18/2021 with symptoms of worsening dyspnea, cough. Patient was diagnosed with COVID-[address] Tsai's office on 06/10/2021. Initial onset of symptoms was on 06/07/2021 with body aches, fever, headaches and progressively became worse. Patient is on non- vaccinated against COVID-19, her was having similar symptoms. They requested a prescription for azithromycin and steroids from Dr. Tsai's office which was prescribed and after completing the treatment patient did not feel better. Patient received infusional monoclonal antibody on an outpatient basis. On presentation in the emergency department on 06/18/2021 patient was found to be hypoxic with a pulse ox in the 80s. She was placed on supplemental oxygen currently at 6 L her chest x-ray shows bilateral pneumonia. Patient has had poor appetite, but no nausea, no vomiting no diarrhea or abdominal pain. Her lab work showed CBC which was unremarkable, d-dimer was negative at 0.39 and subsequent follow-up level was 0.48 also negative, INR was 0.9, sodium was 131 on admission, potassium was 4.5, chloride was 96, CO2 is 25, BUN is 17, creatinine 0.67, plasma lactic acid was 1.0, ferritin level was 956, AST was 60, ALT was 41, LDH was 835, troponins were less than 0.0122, pro calcitonin level was negative at 0.11. Patient was started on Decadron 6 mg IV push daily, prophylactic Lovenox 40 mg daily, COVID-19 vitamins. Patient is outside the window for Remdesivir. On 06/20/2021 patient seen in follow-up on medical surgical floor, she is currently on 6 L of oxygen, and her pulse ox is 96%, FiO2 has been cut back to 5 L, seems to be breathing comfortably, she has been doing awake self re positioning in bed, on her left side, and the right side, and she states she slept on her abdomen last night. He tolerated it fairly well. No worsening dyspnea, still coughing, lung sounds reveal some mild crackles at bilateral bases, no complaints of chest pain. Vital signs have been stable, no fever or chills, continues on Decadron, prophylactic Lovenox, and multivitamins. No new chest x-rays, follow-up inflammatory markers are still pending. D-dimer from yesterday on 06/19/2021 was 0.48. On 06/22/2001 patient seen in follow-up on the surgical floor, she is breathing comfortably, she is on 5 L of oxygen, her pulse ox is 94-95%, she is awake and alert, she has been tolerating ambulation in the room, day [place] any worsening dyspnea, lung sounds reveal bibasilar crackles, vital signs have been stable, no worsening dyspnea. No complaints of chest discomfort, no fever or chills. Her inflammatory markers are improving on today's labs, she was outside the window for Remdesivir, she remains on Decadron, prophylactic Lovenox and multivitamins. Today's d-dimer is 1.82, electrolytes and renal profile are unremarkable, her white count is relatively stable at 13.3, hemoglobin is 13.2. Follow-up chest x-ray today showed bilateral multifocal opacities consistent with COVID-19, stable in appearance. Patient is tolerating oral intake, no nausea vomiting or diarrhea, she is hoping to be able to go home today. Objective - Vital Signs Vital signs: Vital Signs Temp 98.8 F 06/22/21 13:31 Pulse 65 06/22/21 13:31 Resp 17 06/22/21 13:31 BP 98/58 06/22/21 13:31 Pulse Ox 94 L 06/22/21 13:31 Intake & Output 06/21/21 06/22/21 06/22/21 18:59 06:59 18:59 Other: Voiding Method Toilet Toilet # Voids 3 # Bowel Movements 1 - Exam GENERAL EXAM: Alert, very pleasant, 55-year-old white female, on 6 L of oxygen, sitting up in the recliner, on 5 L her pulse ox is 96% comfortable in no apparent distress. HEAD: Normocephalic/atraumatic. EYES: Normal reaction of pupils, equal size. Conjunctiva pink, sclera white. NOSE: Clear with pink turbinates. THROAT: No erythema or exudates. NECK: No masses, no JVD, no thyroid enlargement, no adenopathy. CHEST: No chest wall deformity. Symmetrical expansion. LUNGS: Equal air entry with bilateral crackles CVS: Regular rate and rhythm, normal S1 and S2, no gallops, no murmurs, no rubs ABDOMEN: Soft, nontender. No hepatosplenomegaly, normal bowel sounds, no guarding or rigidity. EXTREMITIES: No clubbing, no edema, no cyanosis, 2+ pulses and upper and lower extremities. MUSCULOSKELETAL: Muscle strength and tone normal. SPINE: No scoliosis or deformity SKIN: No rashes CENTRAL NERVOUS SYSTEM: Alert and oriented -3. No focal deficits, tone is normal in all 4 extremities. PSYCHIATRIC: Alert and oriented -3. Appropriate affect. Intact judgment and insight. - Labs CBC & Chem 7: 06/22/21 05:24 06/22/21 05:24 Labs: Abnormal Lab Results - Last 24 Hours (Table) 06/22/21 06/22/21 06/22/21 Range/Units 05:24 05:24 05:24 WBC 13.39 H (4.50-10.00) X 10*3/uL D-Dimer 1.82 H (<0.60) mg/L FEU Creatinine 0.5 L (0.6-1.5) mg/dL BUN/Creatinine Ratio 30.20 H (12.00-20.00) Ratio Glucose 111 H (70-110) mg/dL Lactate Dehydrogenase 247 H (120-246) U/L C-Reactive Protein 12.70 H (0.00-0.80) mg/dL Total Protein 5.6 L (6.2-8.2) g/dL Albumin 3.1 L (3.8-4.9) g/dL Albumin/Globulin Ratio 1.24 L (1.60-3.17) g/dL Assessment and Plan Plan: Assessment: #1. Acute hypoxic respiratory failure related to acute COVID-19 related pneumonia, with initial onset of symptoms on 06/07/2021. Tested positive on 06/10/2021, received outpatient treatment with azithromycin and steroids, and monoclonal antibody infusion. Presented to the emergency department on 06/18/2021 with worsening dyspnea, hypoxia on pulse ox in the 80s. She is outside the window for Remdesivir. She is a nonvaccinated adult against COVID- 19 #2. Elevated inflammatory markers related to the above, improved #3. Mildly elevated transaminases, improved #4. Mild hyponatremia likely related to poor oral intake, improved Plan: Patient has been clinically stable, without worsening dyspnea or hypoxia FiO2 is currently down to 4 L Vital signs have been stable, Inflammatory markers are improving Patient is tolerating activity and ambulation in the room She can be considered for discharge home on home oxygen at 4 L/m She can finish outpatient course of oral Decadron 6 mg daily for a total of 10 days and continue on vitamin C, D and zinc Outpatient follow-up with Dr. Henley in the office in 2 weeks I performed a history & physical examination of the patient and discussed their management with my nurse practitioner, Roselien Gastelum. I reviewed the nurse practitioner's note and agree with the documented findings and plan of care. Lung sounds are positive for diminished breath sounds diffuse crackles throughout the lung young. The findings and the impression was discussed with the patient. I attest to the documentation by the nurse practitioner. Time with Patient: Less than 30
[2021-06-22] MEDS: CHOLECALCIFEROL 125 MCG (5000 IU) TABLET PO SCH (21:15)
[2021-06-22] MEDS: MELATONIN 5 MG TABLET PO SCH (21:15)
[2021-06-22] MEDS: ZINC SULFATE 220 MG CAP PO SCH (21:15)
[2021-06-23 03:56] VITALS: RESP 18
[2021-06-23] MEDS: ALBUTEROL HFA INHALER INHALATION PRN (07:21)
[2021-06-23] MEDS: DEXAMETHASONE SOD PHOSPHATE 10 MG/ML 1 ML VIAL IVP SCH (09:01)
[2021-06-23] MEDS: PANTOPRAZOLE 40 MG TABLET PO SCH (09:02)
[2021-06-23] MEDS: ENOXAPARIN 40 MG/0.4 ML SYRINGE SQ SCH (09:02)
[2021-06-23] MEDS: DOCUSATE 100 MG CAP PO SCH (09:02)
[2021-06-23] MEDS: ASCORBIC ACID 500 MG TAB PO SCH (09:02)
[2021-06-23 13:19] VITALS: BMI 27.4
[2021-06-23 14:28] VITALS: BP 115/68; PULSE 50; TEMP 98.5
--- NOTE | 2021-06-23 15:02 | P.PN ---
Subjective Progress Note Date: 06/23/21 This is a 55-year-old white female patient without significant medical history, who presented to the emergency department on 06/18/2021 with symptoms of worsening dyspnea, cough. Patient was diagnosed with COVID-[address] Tsai's office on 06/10/2021. Initial onset of symptoms was on 06/07/2021 with body aches, fever, headaches and progressively became worse. Patient is on non- vaccinated against COVID-19, her was having similar symptoms. They requested a prescription for azithromycin and steroids from Dr. Tsai's office which was prescribed and after completing the treatment patient did not feel better. Patient received infusional monoclonal antibody on an outpatient basis. On presentation in the emergency department on 06/18/2021 patient was found to be hypoxic with a pulse ox in the 80s. She was placed on supplemental oxygen currently at 6 L her chest x-ray shows bilateral pneumonia. Patient has had poor appetite, but no nausea, no vomiting no diarrhea or abdominal pain. Her lab work showed CBC which was unremarkable, d-dimer was negative at 0.39 and subsequent follow-up level was 0.48 also negative, INR was 0.9, sodium was 131 on admission, potassium was 4.5, chloride was 96, CO2 is 25, BUN is 17, creatinine 0.67, plasma lactic acid was 1.0, ferritin level was 956, AST was 60, ALT was 41, LDH was 835, troponins were less than 0.0122, pro calcitonin level was negative at 0.11. Patient was started on Decadron 6 mg IV push daily, prophylactic Lovenox 40 mg daily, COVID-19 vitamins. Patient is outside the window for Remdesivir. On 06/20/2021 patient seen in follow-up on medical surgical floor, she is currently on 6 L of oxygen, and her pulse ox is 96%, FiO2 has been cut back to 5 L, seems to be breathing comfortably, she has been doing awake self re positioning in bed, on her left side, and the right side, and she states she slept on her abdomen last night. He tolerated it fairly well. No worsening dyspnea, still coughing, lung sounds reveal some mild crackles at bilateral bases, no complaints of chest pain. Vital signs have been stable, no fever or chills, continues on Decadron, prophylactic Lovenox, and multivitamins. No new chest x-rays, follow-up inflammatory markers are still pending. D-dimer from yesterday on 06/19/2021 was 0.48. On 06/22/2021 patient seen in follow-up on the surgical floor, she is breathing comfortably, she is on 5 L of oxygen, her pulse ox is 94-95%, she is awake and alert, she has been tolerating ambulation in the room, day [place] any worsening dyspnea, lung sounds reveal bibasilar crackles, vital signs have been stable, no worsening dyspnea. No complaints of chest discomfort, no fever or chills. Her inflammatory markers are improving on today's labs, she was outside the window for Remdesivir, she remains on Decadron, prophylactic Lovenox and multivitamins. Today's d-dimer is 1.82, electrolytes and renal profile are unremarkable, her white count is relatively stable at 13.3, hemoglobin is 13.2. Follow-up chest x-ray today showed bilateral multifocal opacities consistent with COVID-19, stable in appearance. Patient is tolerating oral intake, no nausea vomiting or diarrhea, she is hoping to be able to go home today. On 06/23/2021 patient is seen in follow-up on medical surgical floor, her breathing has remained stable, she is currently on 4 L of oxygen her pulse ox is 92%. Afebrile, hemodynamically stable, no fever or chills, overall she states she is breathing much easier, and feeling much better. Lung sounds reveal minimal crackles at bilateral bases. Remains on Decadron, she is on Lovenox, she is on multivitamins. Appetite has been good, tolerating oral intake, no nausea vomiting or diarrhea. Patient said no acute events overnight, she was to go home today. Pulmonary perspective patient is stable for discharge home today Objective - Vital Signs Vital signs: Vital Signs Temp 98.5 F 06/23/21 14:00 Pulse 50 L 06/23/21 14:00 Resp 18 06/23/21 14:00 BP 115/68 06/23/21 14:00 Pulse Ox 93 L 06/23/21 14:00 Intake & Output 06/22/21 06/23/21 06/23/21 18:59 06:59 18:59 Intake Total 360 Balance 360 Weight 72.575 kg Intake: Oral 360 Other: Voiding Method Toilet Toilet # Voids 3 2 - Exam GENERAL EXAM: Alert, very pleasant, 55-year-old white female, on 4 L of oxygen, sitting up in the recliner, on 4 L her pulse ox is 92% comfortable in no apparent distress. HEAD: Normocephalic/atraumatic. EYES: Normal reaction of pupils, equal size. Conjunctiva pink, sclera white. NOSE: Clear with pink turbinates. THROAT: No erythema or exudates. NECK: No masses, no JVD, no thyroid enlargement, no adenopathy. CHEST: No chest wall deformity. Symmetrical expansion. LUNGS: Equal air entry with bilateral crackles CVS: Regular rate and rhythm, normal S1 and S2, no gallops, no murmurs, no rubs ABDOMEN: Soft, nontender. No hepatosplenomegaly, normal bowel sounds, no guarding or rigidity. EXTREMITIES: No clubbing, no edema, no cyanosis, 2+ pulses and upper and lower extremities. MUSCULOSKELETAL: Muscle strength and tone normal. SPINE: No scoliosis or deformity SKIN: No rashes CENTRAL NERVOUS SYSTEM: Alert and oriented -3. No focal deficits, tone is normal in all 4 extremities. PSYCHIATRIC: Alert and oriented -3. Appropriate affect. Intact judgment and insight. - Labs CBC & Chem 7: 06/22/21 05:24 06/22/21 05:24 Assessment and Plan Plan: Assessment: #1. Acute hypoxic respiratory failure related to acute COVID-19 related pneumonia, with initial onset of symptoms on 06/07/2021. Tested positive on 06/10/2021, received outpatient treatment with azithromycin and steroids, and monoclonal antibody infusion. Presented to the emergency department on 06/18/2021 with worsening dyspnea, hypoxia on pulse ox in the 80s. She is outside the window for Remdesivir. She is a nonvaccinated adult against COVID- 19 #2. Elevated inflammatory markers related to the above, improved #3. Mildly elevated transaminases, improved #4. Mild hyponatremia likely related to poor oral intake, improved Plan: Patient has remained stable over last 24 hours Currently on 4 L, maintaining O2 saturation above 90% No acute events overnight She is tolerating elevation in the room Vital signs have been stable, no fever or chills She came to considered for discharge home today She can finish outpatient course of oral Decadron 6 mg daily for a total of 10 days and continue on vitamin C, D and zinc Outpatient follow-up with Dr. Henley in the office in 2 weeks I performed a history & physical examination of the patient and discussed their management with my nurse practitioner, Roseline Gastelum. I reviewed the nurse practitioner's note and agree with the documented findings and plan of care. Lung sounds are positive for diminished breath sounds diffuse crackles throughout the lung young. The findings and the impression was discussed with the patient. I attest to the documentation by the nurse practitioner. Time with Patient: Less than 30
--- NOTE | 2021-06-23 16:48 | P.DS ---
Providers Date of admission: 06/18/21 11:50 Expected date of discharge: 06/23/21 Attending physician: Jordyn Pabon MD Consults: 06/18/21 13:33 Consult Physician Routine Consulting Provider: Anna Schwab Consult Reason/Comments: covid 19 Do you want consulting provider notified?: Yes 06/18/21 13:34 Consult Physician Routine Consulting Provider: Austin Perry Consult Reason/Comments: COVID 19, hypoxia Do you want consulting provider notified?: Yes Primary care physician: Gustavo Tsai Hospital Course: Discharge Diagnosis: Acute respiratory failure with hypoxia secondary to COVID 19 pneumonia Elevated d-dimer Hyponatremia, resolved Hepatic steatosis Hospital Course: Patient is a very pleasant 55-year-old female without significant medical history. She presented to the emergency department on 06/18/2021 with symptoms of worsening dyspnea and cough status post recent diagnosis of Covid 19 virus infection by her PCP Dr. Tsai on 06/10/2021 shortly after symptoms began on 06/07/21. Upon arrival to the emergency department patient was found to be hypoxic 82% on room air requiring oxygen supplementation. She underwent full workup, CBC unremarkable, d-dimer 0.48, hyponatremia with sodium of 132, and slightly elevated liver enzymes with AST of 59 and ALP of 55. CRP of 9.40 and troponin less than 0.0122 draws. EKG completed showing normal sinus rhythm at 69 bpm with no noted T wave or ST abnormality showing no signs of acute ischemia. Chest x-ray positive for pneumonia. Patient was admitted under our services for acute hypoxic respiratory failure secondary to Covid pneumonia with consultation to pulmonology. CTA negative for pulmonary emboli revealing scatt ered peripheral groundglass opacities consisted with Covid pneumonia. Bilateral lower extremity Dopplers negative for DVT. Patient weaned down to 4 L O2 via nasal cannula and maintaining pulse oximetry. At rest patient 94 L on 4 L O2, with ambulation and exertion patient's oxygen needs increased to 5 L and maintain saturations at 90%. Patient is stable for discharge at this time. Pulmonology recommending follow-up outpatient in office.. Arrangements have been made for home oxygen. Patient instructed to wear at all times until further advised by scoop filler at follow-up visit. Patient being discharged home and to complete 5 remaining doses of 10 day course of Decadron. Patient given discharge instructions and all questions answered at this time. Patient medically stable for discharge. Physical exam: Vital signs reviewed and stable. General: Nontoxic, no distress and appears stated age. Derm: Skin warm and dry, normal coloration for ethnicity. Head: Atraumatic, normocephalic and symmetric. Eyes: EOMs intact, no lid lag, and anicteric sclera Mouth: no lip lesions, mucus membranes moist Cardiovascular: regular rate and rhythm with normal S1S2, no murmur, positive posterior tibial pulses bilaterally, and cap refill < 2 seconds. Lungs: Respirations even, regular, and unlabored on 4 L O2 via nasal cannula. Lungs with minimal crackles at bilateral bases, no rhonchi, no rales, no wheezing, and no accessory muscle usage. Abdominal: soft, nontender to palpation, no guarding, no appreciable organomegaly Ext: ROM intact. No gross muscle atrophy, no edema, no contractures Neuro: Speech clear, face symmetrical and CN II-XII grossly intact with no noted focal neuro deficits Psych: Alert and oriented to person, place, time, and situation. Appropriate and pleasant affect. A total of 45 minutes of time were spent preparing this complex discharge summary. Patient Condition at Discharge: Stable Plan - Discharge Summary Discharge Rx Participant: Yes New Discharge Prescriptions: New Dexamethasone [Decadron] 6 mg PO DAILY 5 Days #5 tablet Ascorbic Acid [Vitamin C] 500 mg PO BID 30 Days #60 tab Albuterol Inhaler [Ventolin Hfa Inhaler] 2 puff INHALATION RT-Q6H PRN #1 inh PRN Reason: Shortness Of Breath Or Wheezing Continue Zinc Gluconate [Zinc] 50 mg PO HS Cholecalciferol [Vitamin D3 (125 Mcg = 5000 Iu)] 125 mcg PO HS Discharge Medication List Cholecalciferol [Vitamin D3 (125 Mcg = 5000 Iu)] 125 mcg PO HS 06/18/21 [History] Zinc Gluconate [Zinc] 50 mg PO HS 06/18/21 [History] Albuterol Inhaler [Ventolin Hfa Inhaler] 2 puff INHALATION RT-Q6H PRN #1 inh 06/23/21 [Rx] Ascorbic Acid [Vitamin C] 500 mg PO BID 30 Days #60 tab 06/23/21 [Rx] Dexamethasone [Decadron] 6 mg PO DAILY 5 Days #5 tablet 12/16/21 [Rx] Follow up Appointment(s)/Referral(s): Gustavo Tsai MD [Primary Care Provider] - 06/28/21 11:00 am Socrates Henley DO [Doctor of Osteopathic Medicine] - 07/07/21 10:30 am Patient Instructions/Handouts: Coronavirus Disease 2019 (COVID-19), Using Oxygen at Home (DC), Hypoxia (GEN) Activity/Diet/Wound Care/Special Instructions: Activity: As tolerated. Take breaks as needed, remember slow and steady wins the race. Do not overexert yourself as this can cause increased oxygen needs and may result in hypoxia. Diet: Regular diet Special Instructions: Take all of your medications as directed and remember to keep all of your do ctor's appointments and follow-up as needed. You are being discharged home on oxygen, it is important to wear this at all times even while showering and sleeping. Do not decrease oxygen rate until you follow up with your scoop filler and he gives she further instructions. You will need to obtain a pulse oximeter from the drug store, one can be purchased at [facility] here in the hospital. It is very important to monitor pulse ox levels as we discussed. Thank you for allowing us to participate in your care, it was truly a pleasure having you for our patient!!! Discharge Disposition: HOME WITH HOME HEALTH SERVICES Care Plan Goals (MU): [facility] phone . [facility] will deliver portable to room, Patient to call when arrive home to set up delivery of concentrator. Any Questions please call agency.
--- NOTE | 2021-06-23 17:09 | PN ---
PROGRESS NOTE DATE OF SERVICE: 06/23/2021 REASON FOR FOLLOWUP: COVID-19 infection. INTERVAL HISTORY: The patient is afebrile. The patient is breathing comfortably. She is down to 4 L nasal cannula. The patient denies having any chest pain. No worsening cough or sputum production. No abdominal pain or diarrhea. PHYSICAL EXAMINATION: Blood pressure 115/68 with a pulse of 80, temperature 98.5. She is 93% on 4 L nasal cannula. General description is a middle-aged female up in the bed in no distress. Respiratory system: Unlabored breathing, decreased intensity of breath sounds, with no wheeze. Heart S1, S2. Regular rate and rhythm. Abdomen soft, no tenderness. LABS: No new labs have been obtained today. DIAGNOSTIC IMPRESSION AND PLAN: Patient with acute COVID-19 pneumonia in this patient seems to have shown overall clinical improvement. She will be finish therapy, short course of dexamethasone, zinc and ascorbic acid and close outpatient follow up. Continue supportive care. MMODL / IJN: [id number] /
== END 2021-06-23 16:19 | disposition home or self-care (01) | DRG 177 ==
LOC: EC 10:56 → 4SSUR 11:50
PROVIDERS: ADMIT Internal Medicine; ATTEND Internal Medicine
PROC: 3E0333Z Introduction of Anti-inflammatory into Peripheral Vein, Percutaneous Approach (ICD-10-PCS; principal; 2021-06-18)
PROC: 8E0ZXY6 Isolation (ICD-10-PCS; 2021-06-18)
PROC: 5A0935A Assistance with Respiratory Ventilation, Less than 24 Consecutive Hours, High Flow/Velocity Cannula (ICD-10-PCS; 2021-06-19)
DX: U07.1 COVID-19 (principal); J12.82 Pneumonia due to coronavirus disease 2019; J96.01 Acute respiratory failure with hypoxia; E87.1 Hypo-osmolality and hyponatremia; K76.0 Fatty (change of) liver, not elsewhere classified; Z79.01 Long term (current) use of anticoagulants; Z82.49 Family history of ischemic heart disease and other diseases of the circulatory system; Z83.3 Family history of diabetes mellitus; Z90.710 Acquired absence of both cervix and uterus
CPT/HCPCS: 36415; 71045; 71275; 80053; 82728; 83605; 83615; 83735; 84145; 84484; 85025; 85027; 85379; 85610; 85730; 86140; 87635; 93005; 93970; 94640; 96374; 99285

== ENCOUNTER → 2021-07-28 | Outpatient (CLI) | payer BC ==
--- NOTE | 2021-07-29 06:31 | US ---
EXAMINATION TYPE: US venous doppler duplex LE BI DATE OF EXAM: 07/28/2021 5:23 PM COMPARISON: Prior ultrasound June 21, 2021 CLINICAL HISTORY: M79.669 ELEVATED D DIMER LT LOWER LEG TENDERNESS. Elevated D Dimer. Tenderness in b ilateral legs. Patient takes aspirin. SIDE PERFORMED: Bilateral TECHNIQUE: The lower extremity deep venous system is examined utilizing real time linear array sonog monico with graded compression, doppler sonography and color-flow sonography. VESSELS IMAGED: Common Femoral Vein Deep Femoral Vein Greater Saphenous Vein * Femoral Vein Popliteal Vein Small Saphenous Vein * Proximal Calf Veins (* superficial vessels) Right Leg: No evidence of DVT in veins imaged at this time. Left Leg: No evidence of DVT in veins imaged at this time. Scanning of the bilateral lower extremities again performed. IMPRESSION: No ultrasound evidence for acute DVT in either lower extremity. No significant change fr om prior.
== END | disposition home or self-care (01) ==
LOC: RADUSWWP 16:52
PROVIDERS: ATTEND Family Medicine
DX: M79.669 Pain in unspecified lower leg (principal); R79.1 Abnormal coagulation profile
CPT/HCPCS: 93970

== ENCOUNTER → 2021-10-03 | Outpatient (CLI) | payer SELFPAY ==
--- NOTE | 2021-10-03 16:22 | CT ---
EXAMINATION TYPE: CT heart w calcium score DATE OF EXAM: 10/03/2021 COMPARISON: None. HISTORY: Screening for cardiovascular disorder. 213.9 CT DLP: 60.50 mGycm Automated exposure control for dose reduction was used. CT CALCIUM SCORING Coronary calcium is a marker for plaque (fatty deposits) in a blood vessel or atherosclerosis (harden ing of the arteries). The presence and amount of calcium detected in a coronary artery by the CT sca n, indicates the presence and amount of atherosclerotic plaque. These calcium deposits appear years before the development of heart disease symptoms such as chest pain and shortness of breath. A calcium score is computed for each of the coronary arteries based upon the volume and density of th e calcium deposits. This can be referred to as your calcified plaque burden. It does not correspond directly to the percentage of narrowing in the artery but does correlate with the severity of the un derlying coronary atherosclerosis. PROCEDURE TECHNIQUE - Prospective Gating was used. Slice thickness: 3mm. Density threshold (HU): 130, Pixel threshold: 3, Algorithm: discrete. RESULTS Region: LM Calcium Score ([place]at[place]): 0 Volume (mm3): 0 Mass (g): 0 Region: RCA Calcium Score ([place]): 0 Volume (mm3): 0 Mass (g): 0 Region: LAD Calcium Score ([place]at[place]): 0 Volume (mm3): 0 Mass (g): 0 Region: CX Calcium Score ([place]): 0 Volume (mm3): 0 Mass (g): 0 Region: PDA Calcium Score ([place]): 0 Volume (mm3): 0 Mass (g): 0 Total: Calcium Score ([place]atston): 0 Volume (mm3): 0 Mass (g): 0 Incidental findings: None. IMPRESSION: Calcium Score: 0 Implication: No identifiable plaque. Risk of Coronary Artery Disease: Very low, generally less than 5%. CALCIUM SCORE IMPLICATION RISK OF C ORONARY ARTERY DISEASE 0 No identifiable plaque Very low, generally less than 5% 1-10 Minimal identifiable plaque Very unlikely, less than 10% 11-100 Definite, at least mild atherosclerotic plaque Mild or m inimal coronary narrowings likely 101-400 Definite, at least moderate atherosclerotic plaque Mild coronary ar [place] disease highly likely, significant narrowing possible 401 or Higher Extensive atherosclerotic plaque High lik elihood of at least one significant coronary narrowing
== END | disposition home or self-care (01) ==
LOC: RADCTMAIN 09:15
PROVIDERS: ATTEND Family Medicine
DX: Z13.6 Encounter for screening for cardiovascular disorders (principal)
CPT/HCPCS: 75571

== ENCOUNTER → 2023-10-22 | Outpatient (CLI) | payer BC ==
--- NOTE | 2023-10-23 19:29 | MM ---
Reason for Exam: Screening (asymptomatic). Last mammogram was performed 1 year(s) and 2 month(s) ago. Patient History: Menarche at age 14. First Full-Term at age 25. Hysterectomy at age 36. Postmenopausal. Other cancer, age 42. Patient tested for BRCA1 outcome was negative. 2010, Excisional Biopsy on the Right side. 08/10/2016, Benign Core Biopsy on the left side. 06/17/2013, Benign Core Biopsy on the left side. Maternal aunt had breast cancer, age 60. Maternal aunt had breast cancer, age 60. Father had breast cancer, age 65. Mother had breast cancer, age 30. Risk Values: Codie 5 year model risk: 3.5%. NCI Lifetime model risk: 21.4%. Prior Study Comparison: 05/08/2016 Bilateral Diagnostic Mammogram, [facility]. 08/10/2016 Left Diagnostic Mammogram, [facility]. 08/14/2022 Bilateral MG 3D screening mammo w/cad, [facility]. Tissue Density: The breasts are heterogeneously dense, which may obscure small masses. Findings: Analyzed By CAD. 2 microclips left breast from prior biopsy. Additional chronic nodularity and unchanged areas of asymmetric density on the left. There is no suspicious group of microcalcifications or new suspicious mass in either breast. Overall Assessment: Benign, BI-RAD 2 Management: Screening Mammogram of both breasts in 1 year. SEE NOTE BELOW IN REGARDS TO PATIENT'S INCREASED 5 YEAR CODIE SCORE AND INCREASED LIFETIME RISK SCORE. Patient should continue monthly self-breast exams. A clinical breast exam by your physician is recommended on an annual basis. This exam should not preclude additional follow-up of suspicious palpable abnormalities. Note on Codie scores and lifetime risk: 1. A Codie score greater than 3% is considered moderate risk. If this is the case, consider specialist referral to assess eligibility for a risk reducing agent. 2. If overall lifetime risk for the development of breast cancer is 20% or higher, the patient may qualify for future screening with alternating mammogram and breast MRI. Electronically signed and approved by: Elvi Winn M.D. Radiologist
== END | disposition home or self-care (01) ==
LOC: RADMAMWWP 10:40
PROVIDERS: ATTEND Family Medicine
DX: Z12.31 Encounter for screening mammogram for malignant neoplasm of breast (principal); Z78.0 Asymptomatic menopausal state; Z80.3 Family history of malignant neoplasm of breast
CPT/HCPCS: 77063; 77067

== ENCOUNTER → 2023-11-08 | Outpatient (CLI) | payer BC ==
--- NOTE | 2023-11-08 12:22 | US ---
EXAMINATION TYPE: US gallbladder DATE OF EXAM: 11/08/2023 COMPARISON: CT 11/16/2017, CLINICAL INDICATION: Female, 58 years old with history of R10.11 RIGHT UPPER QUADRANT PAIN; RUQ pain and nausea 2 days ago TECHNIQUE: Multiple sonographic images of the right upper quadrant are obtained. FINDINGS: EXAM MEASUREMENTS: Liver Length: 19.7 cm Gallbladder Wall: 0.3 cm CBD: 0.4 cm Right Kidney: 12.9x5.2x7.5 cm Pancreas: mostly obscured by overlying bowel gas Liver: increased size, echogenicity and attenuation, focal fatty sparring adjacent to GB Gallbladder: 1.7cm stone vs. sludge ball noted near GB neck. Small gravel like stones noted near fun dus. Possible sludge/debris within.Evidence for sonographic Jones's sign: No CBD: wnl Right Kidney: No hydronephrosis or masses seen exam limited by bowel gas, rib shadows, body habitus, and liver attenuation IMPRESSION: 1. Hepatic steatosis with focal fatty sparing. 2. Cholelithiasis with biliary sludge.
[2023-11-08 19:04] LABS: Amylase 63 U/L (23-121); Lipase 29 U/L (14-63)
== END | disposition home or self-care (01) ==
LOC: RADUSWWP 11:37
PROVIDERS: ATTEND Family Medicine
DX: K80.20 Calculus of gallbladder without cholecystitis without obstruction (principal); K76.0 Fatty (change of) liver, not elsewhere classified
CPT/HCPCS: 76705; 82150; 83690

== ENCOUNTER → 2024-04-07 | Outpatient (CLI) | payer BC ==
--- NOTE | 2024-04-07 16:10 | US ---
EXAMINATION TYPE: US thyroid st tissue head/neck DATE OF EXAM: 04/07/2024 COMPARISON: NONE CLINICAL INDICATION: Female, 58 years old with history of R13.10 DYSPHAGIA, UNSPECIFIED; Dysphagia x 1 episode GLAND SIZE: Right Lobe: 3.8 x 1.6 x 1.1 cm Overall Parenchyma: homogeneous Left Lobe: 4.1 x 1.6 x 1.1 cm Overall Parenchyma: homogeneous Isthmus Thickness: 0.4 cm NODULES RIGHT: # of nodules measured on right: 0 LEFT: # of nodules measured on left: 0 ISTHMUS: # of nodules measured in the isthmus: 0 Bilateral neck scanned, no evidence of lymphadenopathy. IMPRESSION: 1. No thyroid nodules. 2. No acute process. [facility], , 04/07/2024 4:07 PM
== END | disposition home or self-care (01) ==
LOC: RADUSWWP 15:18
PROVIDERS: ATTEND Family Medicine
DX: R13.10 Dysphagia, unspecified (principal)
CPT/HCPCS: 76536